=== PATIENT | male | born 1980 | race Caucasian/White ===

== ENCOUNTER 2016-12-07 18:15 | Emergency (ER) | payer OTHER ==
--- NOTE | 2016-12-07 19:14 | ED CLINICAL REPORT ---
Clinical Report - Physicians/Mid Levels [facility] [address] [place] [address] 12/07/2016 18:17 Patient: AMBAR BELLO Time Seen: 19:03 Dec 07 2016. Arrived- By private vehicle. Historian- patient. HISTORY OF PRESENT ILLNESS Chief Complaint: SKIN RASH and TENDER AREA and INSECT BITE. This started 2 - 3 days and is still present. It is described as painful. It has been located on the left leg. A possible cause has been identified. (Pain swelling to the left hip of the last 2-3 days. No drainage. No trauma to the area. Last used to the area of IV drugs was about 10 days previously. History of similar infections.). REVIEW OF SYSTEMS No fever, chills, lump in throat, eye irritation or nausea. All systems otherwise negative, except as recorded above. PAST HISTORY Tetanus immunization status is up-to-date. Problems: Skin Rash. Immunizations. Medications: Methadone HCl Oral 85 mg , daily. Allergies: None. SOCIAL HISTORY Current every day smoker. History of IV drug use: heroin, methamphetamines. ADDITIONAL NOTES The nursing notes have been reviewed. PHYSICAL EXAM Vital Signs: 12/07/2016 18:35 BP: 120/65. HR: 81. RR: 16. O2 saturation: 98%. Temp: 99.3 F. Pain level now: 5/10. Appearance: Alert. ENT: Ears normal. Nose normal. CVS: Normal heart rate and rhythm. Heart sounds normal. Respiratory: No respiratory distress. Breath sounds normal. Skin: Skin warm. Tender indurated area (5 by 5 cm swelling/ indurations, no fluctulance). Cellulitis. Abscess. Skin rash present. Rash present on the left lower extremity (left lateral thigh). There is warmth, induration, tenderness, thickening and swelling. No weeping or inflammation. Extremities: (full rom at hip, no lymphadneopathy). Neuro: Oriented X 3. PROGRESS AND PROCEDURES Course of Care: Discussed early signs of abscess which is deep, and need for antibiotics, possible I&D. Patient does not wish to have I&D at this time, as he may have to have further I&D and such of the area, as it appears primarily a cellulitis with early early signs of abscess. Patient wishes to use warm packs and return in 2-3 days if things are worse. He has had such previously. History of IV drug use. Reports his immunizations are up-to-date. afebrile/ normacardic. 12/07/2016 18:35 BP: 120/65. HR: 81. RR: 16. O2 saturation: 98%. Temp: 99.3 F. Pain level now: 10. Patient is stable. Patient/family counseled. Disposition: Discharged. CLINICAL IMPRESSION Single deep abscess to the left lower extremity. INSTRUCTIONS (warm packs antibiotics repeat eval in 2-3 days). Prescription Medications: Bactrim DS 800 mg / 160 mg: take 1 tablet orally every 12 hours for 10 days. Substitution is permissible. Keflex 500 mg: take 1 capsule orally every 8 hours for 10 days. No refill. Substitution is permissible. Follow-up: Follow up with doctor in two days. (Electronically signed by Moon Santillan P.A.-C 12/07/2016 19:22)
--- NOTE | 2016-12-07 19:14 | ED NURSING NOTES ---
Clinical Report - Nurses [facility] [address] [place] [address] 12/07/2016 18:17 Patient: AMBAR BELLO TRIAGE Triage time 18:35 Dec 07 2016. Acuity: LEVEL 3. Chief Complaint: LEFT LOWER EXTREMITY PAIN and SWELLING. Alert. No acute distress. LORENA COMA SCORE: Lorena Coma Scale: 15- eyes open spontaneously (4); best verbal response- oriented x 4 (5); best motor response- obeys commands (6). --18:42 Daly Jung R.N. 18:35 12/07/16. BP: 120/65. HR: 81. RR: 16. O2 saturation: 98%. Temp: 99.3 F. Pain level now: 11/07. --18:42 Daly Jung R.N. Weight: 83 kg stated. Height/Length: 69 inches Per Patient. BMI: 27. --18:40 Daly Jung R.N. Medications Methadone HCl Oral 85 mg , daily. --18:38 Daly Jung R.N. Allergies None. --18:38 Daly Jung R.N. History Arrived by private vehicle. Historian: patient. No injury occurred. This occurred (about 2 days ago). ( abscess to Left Hip area. Pt states that he thinks it is from a sliver a few days ago.). He has had trouble walking. 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 PAST MEDICAL HX: Tetanus status: up-to-date. Immunizations: up-to-date. SOCIAL HX: Current every day heavy tobacco smoker (cigarette)- less than 1 pack per day. History of drug use: heroin, methamphetamines. Recently used drugs days ago. No alcohol use. No infectious disease exposure. SELF HARM ASSESSMENT: A self harm assessment was performed. The patient answered "no" to the question "Do you have thoughts of harming or killing yourself?". FALL RISK ASSESSMENT: Fall risk assessment completed. No fall risk identified. NUTRITIONAL RISK ASSESSMENT: The nutritional risk assessment revealed no deficiencies. FUNCTIONAL ASSESSMENT: Functional assessment: no impairments noted. LEARNING NEEDS ASSESSMENT: The learning needs assessment revealed no barriers. ABUSE ASSESSMENT: Abuse assessment: The patient was asked "Do you feel safe in your home?". SKIN INTEGRITY ASSESSMENT: Skin integrity risk assessment completed. No skin integrity risk identified. --18:42 Daly Jung R.N. PROBLEMS: Abscess. Skin Rash. Immunizations. --18:39 Daly Jung R.N. ADDITIONAL SURGERIES: Incision AND drainage. --18:39 Daly Jung R.N. Interventions ID band on patient. To room. --18:42 Daly Jung R.N. PHYSICAL ASSESSMENT Ambulatory to room. GENERAL / NEURO / PSYCH: Oriented X 4. Alert. Appears in no acute distress. Appears in pain. EXTREMITIES: Limited ROM present. Lower extremity edema. Extremity pulses are within normal limits. Left hip: tenderness and swelling. SKIN: Skin is warm and dry. --18:43 Daly Jung R.N. NURSING PROGRESS NOTES Patient gowned. Patient identifiers checked. Call light placed in reach. Side rails up x 1. Bed placed in lowest position. --18:44 Daly Jung R.N. 19:30. The patient is calm and resting quietly. GENERAL / NEURO / PSYCH: Alert. Oriented X 4. RESPIRATORY: No respiratory distress. SKIN: Skin is warm and dry. --19:36 Leandro Knight R.N. 19:27 12/07/2016 Bactrim DS (Sulfamethoxazole-TMP DS) PO 2 tab given. Allergies verified and confirmed 5 rights. --19:37 Leandro Knight R.N. 19:27 12/07/2016 Keflex (Cephalexin) PO 500 mg given. Allergies verified and confirmed 5 rights. --19:37 Leandro Knight R.N. DISPOSITION / DISCHARGE Departure time: 19:32. Condition at departure: stable. No learning barriers present. Discharge instructions provided and reviewed with the patient. Reviewed medication(s) side effects, precautions, dosing and course information. Prescription(s) given to the patient. Patient verbalized understanding. Written instructions provided in Belgian. The patient was discharged home and accompanied by audiometrist. He left the Emergency Department ambulatory and via private vehicle. [employer] Consultant driving. FALL RISK ASSESSMENT: Fall risk assessment completed. No fall risk identified. --19:35 Leandro Knight R.N. 19:26 12/07/16. BP: 120/65. HR: 60. RR: 15. O2 saturation: 98%. Pain level now: 0/10. --19:35 Leandro Knight R.N. Locked/Released at 12/07/2016 19:59 by Daly Jung R.N.
--- NOTE | 2016-12-07 19:14 | ED NURSING NOTES ---
Clinical Report - Nurses [facility] [address] [place] [address] 12/07/2016 18:17 Patient: AMBAR BELLO TRIAGE Triage time 18:35 Dec 07 2016. Acuity: LEVEL 3. Chief Complaint: LEFT LOWER EXTREMITY PAIN and SWELLING. Alert. No acute distress. LORENA COMA SCORE: Lorena Coma Scale: 15- eyes open spontaneously (4); best verbal response- oriented x 4 (5); best motor response- obeys commands (6). --18:42 Daly Jung R.N. 18:35 12/07/16. BP: 120/65. HR: 81. RR: 16. O2 saturation: 98%. Temp: 99.3 F. Pain level now: 11/07. --18:42 Daly Jung R.N. Weight: 83 kg stated. Height/Length: 69 inches Per Patient. BMI: 27. --18:40 Daly Jung R.N. Medications Methadone HCl Oral 85 mg , daily. --18:38 Daly Jung R.N. Allergies None. --18:38 Daly Jung R.N. History Arrived by private vehicle. Historian: patient. No injury occurred. This occurred (about 2 days ago). ( abscess to Left Hip area. Pt states that he thinks it is from a sliver a few days ago.). He has had trouble walking. 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 PAST MEDICAL HX: Tetanus status: up-to-date. Immunizations: up-to-date. SOCIAL HX: Current every day heavy tobacco smoker (cigarette)- less than 1 pack per day. History of drug use: heroin, methamphetamines. Recently used drugs days ago. No alcohol use. No infectious disease exposure. SELF HARM ASSESSMENT: A self harm assessment was performed. The patient answered "no" to the question "Do you have thoughts of harming or killing yourself?". FALL RISK ASSESSMENT: Fall risk assessment completed. No fall risk identified. NUTRITIONAL RISK ASSESSMENT: The nutritional risk assessment revealed no deficiencies. FUNCTIONAL ASSESSMENT: Functional assessment: no impairments noted. LEARNING NEEDS ASSESSMENT: The learning needs assessment revealed no barriers. ABUSE ASSESSMENT: Abuse assessment: The patient was asked "Do you feel safe in your home?". SKIN INTEGRITY ASSESSMENT: Skin integrity risk assessment completed. No skin integrity risk identified. --18:42 Daly Jung R.N. PROBLEMS: Abscess. Skin Rash. Immunizations. --18:39 Daly Jung R.N. ADDITIONAL SURGERIES: Incision AND drainage. --18:39 Daly Jung R.N. Interventions ID band on patient. To room. --18:42 Daly Jung R.N. PHYSICAL ASSESSMENT Ambulatory to room. GENERAL / NEURO / PSYCH: Oriented X 4. Alert. Appears in no acute distress. Appears in pain. EXTREMITIES: Limited ROM present. Lower extremity edema. Extremity pulses are within normal limits. Left hip: tenderness and swelling. SKIN: Skin is warm and dry. --18:43 Daly Jung R.N. NURSING PROGRESS NOTES Patient gowned. Patient identifiers checked. Call light placed in reach. Side rails up x 1. Bed placed in lowest position. --18:44 Daly Jung R.N. 19:30. The patient is calm and resting quietly. GENERAL / NEURO / PSYCH: Alert. Oriented X 4. RESPIRATORY: No respiratory distress. SKIN: Skin is warm and dry. --19:36 Leandro Knight R.N. 19:27 12/07/2016 Bactrim DS (Sulfamethoxazole-TMP DS) PO 2 tab given. Allergies verified and confirmed 5 rights. --19:37 Leandro Knight R.N. 19:27 12/07/2016 Keflex (Cephalexin) PO 500 mg given. Allergies verified and confirmed 5 rights. --19:37 Leandro Knight R.N. DISPOSITION / DISCHARGE Departure time: 19:32. Condition at departure: stable. No learning barriers present. Discharge instructions provided and reviewed with the patient. Reviewed medication(s) side effects, precautions, dosing and course information. Prescription(s) given to the patient. Patient verbalized understanding. Written instructions provided in Namibian. The patient was discharged home and accompanied by calibration technician. He left the Emergency Department ambulatory and via private vehicle. Bad Cloth Checker driving. FALL RISK ASSESSMENT: Fall risk assessment completed. No fall risk identified. --19:35 Leandro Knight R.N. 19:26 12/07/16. BP: 120/65. HR: 60. RR: 15. O2 saturation: 98%. Pain level now: 0/10. --19:35 Leandro Knight R.N. Locked/Released at 12/07/2016 19:59 by Daly Jung R.N.
--- NOTE | 2016-12-07 19:15 | ED ORDER SUMMARY ---
..... Patient: AMBAR BELLO OrderSheet [facility] VisitID: [id number] [address] [place] [address] 36y, M Registration Date/Time: 12/07/2016 ORDER SHEET Weight: 83.0 kg (stated) Allergies: None GENERAL ORDERS: US Soft Tissue Anywhere (LEFT THIGH) Urgent (18:56 12/07/2016 EKoroleva P.A.-C) (Ack 18:57 Alyssia) (19:36 JQuivey R.N.) CBC w Diff Urgent (19:02 12/07/2016 EKoroleva P.A.-C) (Ack 19:03 Alyssia) (Cancelled: Other19:12 EKoroleva P.A.-C) PCT (Procalcitonin) Urgent (19:02 12/07/2016 EKoroleva P.A.-C) (Ack 19:03 Alyssia) (Cancelled: Other19:12 EKoroleva P.A.-C) MEDICATION ORDERS: Bactrim DS PO (Tablet 800-160 mg) 2 tabs (NOW) (19:12 12/07/2016 EKoroleva P.A.-C) (Ack 19:28 JQuivey R.N.) (19:37 JQuivey R.N.) Keflex PO 500 mg (NOW) (19:12 12/07/2016 EKoroleva P.A.-C) (Ack 19:28 JQuivey R.N.) (19:37 JQuivey R.N.) IV FLUIDS: ORDER SHEET NOTES: [Electronically signed by Moon SantillanABishop-Christy (19:22 12/07/2016)] [Electronically signed by Daly Jung R.N. (19:58 12/07/2016)] [Electronically locked/signed by Daly Jung R.N. (19:58 12/07/2016)]
--- NOTE | 2016-12-07 19:15 | ED ORDER SUMMARY ---
..... Patient: AMBAR BELLO OrderSheet [facility] VisitID: [id number] [address] [place] [address] 36y, M Registration Date/Time: 12/07/2016 ORDER SHEET Weight: 83.0 kg (stated) Allergies: None GENERAL ORDERS: US Soft Tissue Anywhere (LEFT THIGH) Urgent (18:56 12/07/2016 EKoroleva P.A.-C) (Ack 18:57 Alyssia) (19:36 JQuivey R.N.) CBC w Diff Urgent (19:02 12/07/2016 EKoroleva P.A.-C) (Ack 19:03 Alyssia) (Cancelled: Other19:12 EKoroleva P.A.-C) PCT (Procalcitonin) Urgent (19:02 12/07/2016 EKoroleva P.A.-C) (Ack 19:03 Alyssia) (Cancelled: Other19:12 EKoroleva P.A.-C) MEDICATION ORDERS: Bactrim DS PO (Tablet 800-160 mg) 2 tabs (NOW) (19:12 12/07/2016 EKoroleva P.A.-C) (Ack 19:28 JQuivey R.N.) (19:37 JQuivey R.N.) Keflex PO 500 mg (NOW) (19:12 12/07/2016 EKoroleva P.A.-C) (Ack 19:28 JQuivey R.N.) (19:37 JQuivey R.N.) IV FLUIDS: ORDER SHEET NOTES: [Electronically signed by Moon SantillanABishop-Christy (19:22 12/07/2016)] [Electronically signed by Daly Jung R.N. (19:58 12/07/2016)] [Electronically locked/signed by Daly Jung R.N. (19:58 12/07/2016)]
--- NOTE | 2016-12-07 19:44 | DIAGNOSTIC IMAGING REPORT ---
PROCEDURE: US SOFT TISSUE ANYWHERE INDICATION: ABSCESS TECHNIQUE: Valencia scale and color Doppler sonographic images of the upper lateral left thigh were obtained COMPARISON: None. FINDINGS: There is a complex hypoechoic area in the left upper thigh that measures 5.9 x 1.5 x3.7 cm. This is 1.5 cm beneath the skin surface. IMPRESSION: 1. Abscess measuring 5.9 x 1.5 x 3.7 cm
--- NOTE | 2016-12-07 19:59 | ED MAR SUMMARY ---
..... Medication Administration Record [facility] [address] [place] [address] Patient: AMBAR BELLO Visit ID: [id number] 36y, M Weight: 83.0 kg Height/Length: 69 in BMI: 27 ALLERGIES: None Given 12/07/2016 Leandro Knight, R.N. Medication Administered: BACTRIM DS [PO] (SULFAMETHOXAZOLE-TMP DS), Dose: 2 tab PO. Medication Ordered: Bactrim DS PO (Tablet 800-160 mg) 2 tabs (NOW). Given 12/07/2016 Leandro Knight, R.N. Medication Administered: KEFLEX [PO] (CEPHALEXIN), Dose: 500 mg PO. Medication Ordered: Keflex PO 500 mg (NOW).
--- NOTE | 2016-12-07 19:59 | ED MED RECONCILIATION SUMMARY ---
Patient: AMBAR BELLO Medication Reconciliation Report [facility] VisitID: [id number] [address] [place] [address] 36y, M Registration Date/Time: 12/07/2016 Weight: 83.0 kg Height/Length: 69 in. BMI: 27.0 ALLERGIES: None The patient's Home Medications are listed below: THE FOLLOWING MEDICATIONS NEED TO BE RECONCILED: Methadone HCl Oral 85 mg , daily The source(s) of the original Home Medication information: Not obtained. The following Medications were given to the patient in the Emergency Department: Bactrim DS [PO] PO 2 tab, administered: 12/07/2016 7:27:00 PM Keflex [PO] PO 500 mg, administered: 12/07/2016 7:27:00 PM The following Medications were prescribed to the patient: Bactrim DS 800 mg / 160 mg: take 1 tablet orally every 12 hours for 10 days. Substitution is permissible. -- Moon Santillan P.A.-Christy Keflex 500 mg: take 1 capsule orally every 8 hours for 10 days. No refill. Substitution is permissible. -- Moon Santillan, P.A.-C
--- NOTE | 2016-12-07 19:59 | ED MAR SUMMARY ---
..... Medication Administration Record [facility] [address] [place] [address] Patient: AMBAR BELLO Visit ID: [id number] 36y, M Weight: 83.0 kg Height/Length: 69 in BMI: 27 ALLERGIES: None Given 12/07/2016 Leandro Knight, R.N. Medication Administered: BACTRIM DS [PO] (SULFAMETHOXAZOLE-TMP DS), Dose: 2 tab PO. Medication Ordered: Bactrim DS PO (Tablet 800-160 mg) 2 tabs (NOW). Given 12/07/2016 Leandro Knight, R.N. Medication Administered: KEFLEX [PO] (CEPHALEXIN), Dose: 500 mg PO. Medication Ordered: Keflex PO 500 mg (NOW).
--- NOTE | 2016-12-07 19:59 | ED DISCHARGE INSTRUCTIONS ---
Patient: AMBAR BELLO General Instructions [facility] VisitID: [id number] [place] [address] 36y, M Registration Date/Time: 12/07/2016 Single deep abscess to the left lower extremity. INSTRUCTIONS (warm packs antibiotics repeat eval in 2-3 days). Prescription Medications: Bactrim DS 800 mg / 160 mg: take 1 tablet orally every 12 hours for 10 days. Substitution is permissible. Keflex 500 mg: take 1 capsule orally every 8 hours for 10 days. No refill. Substitution is permissible. Follow-up: Follow up with doctor in two days. ADDITIONAL INFORMATION Abscess (Antibiotic Treatment Only) An abscess (sometimes called a boil) occurs when bacteria get trapped under the skin and begin to grow. Pus forms inside the abscess as the body responds to the bacteria. An abscess can occur with an insect bite, ingrown hair, blocked oil gland, pimple, cyst, or puncture wound. In the early stages, redness and tenderness are the only symptoms. Sometimes, this stage can be treated with antibiotics alone. If the abscess does not respond to antibiotic treatment, it will need to be drained with a small cut, under local anesthesia. Home care The following will help you care for your abscess at home: Soak the wound in hot water or apply hot packs (small towel soaked in hot water) to the area for 20 minutes at a time. Do this three to four times a day. Apply antibiotic cream or ointment onto the skin 3-4 times a day, unless something else was prescribed. Some ointments include an antibiotic plus a local pain reliever. If your doctor prescribed antibiotics, do not stop taking this medication until you have finished the prescribed course or the doctor tells you to stop. You may use an [id number] pain medication to control pain, unless another pain medicine was prescribed. If you have chronic liver or kidney disease or ever had a stomach ulcer or GI bleeding, talk with your doctor before using these any of these. Follow-up care Follow up with your health care provider as advised by our staff. Look at your wound each day for the signs of worsening infection listed below. When to seek medical care Get prompt medical attention if any of the following occur: An increase in redness or swelling Red streaks in the skin leading away from the abscess An increase in local pain or swelling Fever of 100.4F (38C) or higher, or as directed by your health care provider Pus or fluid coming from the abscess Cellulitis You have an infection of the skin known as cellulitis. This usually starts with a scrape, cut, insect bite, blister or other opening in the skin which becomes infected. This is a serious condition. It must be watched closely to be sure the infection is not spreading. With antibiotic treatment, the size of the red area will gradually shrink in size until the skin returns to normal. This will take 7-10 days. The red area should never increase in size once the antibiotic medicine has been started. Occasionally, an infection will be resistant to one antibiotic and another one will have to be used. Home Care: 1) Limit the use of the affected part, since excess movement can cause the infection to spread. 2) If the infection is on your leg, walk as little as possible during the first few days of the treatment. Keep your leg elevated while sitting. This will reduce swelling. 3) Take all of the antibiotic medicine exactly as directed until it is gone. Be careful not to miss any doses, especially during the first seven days. Follow Up with your doctor or this facility as directed. Check the infected area daily for the warning signs listed below. Get Prompt Medical Attention if any of the following occur: -- Spreading area of redness -- Increasing swelling or pain -- Appearance of pus or drainage -- Fever over 100.4 F (38.0 C) oral, or over 101.4 F (38.6 C) rectal, after two days on antibiotics Staph Infection (MRSA) "Staph" is the short name for the common bacteria called "staphylococcus aureus". Staph bacteria are often present on the skin without causing an infection. If it gets under the skin an infection occurs. This causes redness, tenderness, swelling and sometimes fluid drainage. MRSA stands for "Methicillin-Resistant Staph Aureus". Unlike a common staph infection, MRSA bacteria are resistant to the usual antibiotics and harder to treat. Also, MRSA is more toxic than common staph bacteria. It can spread quickly throughout the body and cause a life-threatening illness. MRSA is spread to others by direct physical contact with the bacteria. MRSA can also be transmitted from items contaminated by a person who has the bacteria, such as bandages, towels, bed sheets, or sports equipment. It is not spread through the air. Once you have a MRSA skin infection, you are at risk of having it recur in the future. If MRSA infection is suspected, the doctor may take a wound culture to confirm the diagnosis. Any abscess will be drained. One or sometimes two antibiotics that work against MRSA will be prescribed. Home Care: 1) Take any antibiotics prescribed exactly as directed until they are gone. 2) Follow the same washing procedures as outlined for Household Members below. 3) Keep draining wounds covered with clean, dry bandages. Change dressings as they become soiled. 4) You and those in contact with you should wash their hands frequently with soap and warm water or use an alcohol-based hand look out tower fire watcher. Do this after each time you change the bandage or touch the wound. 5) Avoid sharing personal items such as towels, washcloths, razors, clothing, or uniforms. Wash soiled sheets, towels or clothes in hot water with laundry detergent. Use an automatic clothes dryer set on high to kill any remaining bacteria. 6) Remove any artificial nails and nail haitian. 7) If you use a gym, wipe down equipment before and after each use. Treatment Of Household Members If you have been diagnosed with possible MRSA infection, those living with you are at higher risk of carrying the bacteria on their skin or in their nose, even if there is no sign of infection. Bacteria must be removed from the skin of all household members (including you) at the same time, so that it is not passed back and forth. Advise them to remove the bacteria as follows: Wash your whole body (scalp to toes) daily for five days with Hibiclens (chlorhexidine). Scrub fingernails with a brush for one minute twice a day. If any skin infections are present (boils, abscess, infected cut) these must be treated by a doctor. Washing alone will not treat a MRSA infection. Clean counter tops and children's toys; do not share personal items such as toothbrush and razors. It is okay to share glasses, plates, utensils. If antibiotic ointment was prescribed use it as directed. Follow Up with your doctor or as advised by our staff. If a wound culture was taken, call as directed in two days to obtain the results. If the culture result is positive for MRSA, tell medical personnel in the future that you were treated for this type of infection. Get Prompt Medical Attention if any of the following occur: -- Increasing redness, swelling or pain -- Red streaks in the skin around the wound -- Weakness or dizziness -- New appearance of pus or drainage from the wound -- New fever over 100.4 F (38.0 C) Sulfamethoxazole, Trimethoprim Oral tablet What is this medicine? SULFAMETHOXAZOLE; TRIMETHOPRIM or SMX-TMP (suhl fuh meth OK tang zohl; trye METH oh prim) is a combination of a sulfonamide antibiotic and a second antibiotic, trimethoprim. It is used to treat or prevent certain kinds of bacterial infections. It will not work for colds, flu, or other viral infections. How should I use this medicine? Take this medicine by mouth with a full glass of water. Follow the directions on the prescription label. Take your medicine at regular intervals. Do not take it more often than directed. Do not skip doses or stop your medicine early. Talk to your explosive ordnance technician regarding the use of this medicine in children. Special care may be needed. This medicine has been used in children as young as 2 months of age. What side effects may I notice from receiving this medicine? Side effects that you should report to your doctor or health palliative care coordinator as soon as possible: allergic reactions like skin rash or hives, swelling of the face, lips, or tongue breathing problems fever or chills, sore throat irregular heartbeat, chest pain joint or muscle pain pain or difficulty passing urine red pinpoint spots on skin redness, blistering, peeling or loosening of the skin, including inside the mouth unusual bleeding or bruising unusually weak or tired yellowing of the eyes or skin Side effects that usually do not require medical attention (report to your doctor or health palliative care coordinator if they continue or are bothersome): diarrhea dizziness headache loss of appetite nausea, vomiting nervousness What may interact with this medicine? Do not take this medicine with any of the following medications: aminobenzoate potassium dofetilide metronidazole This medicine may also interact with the following medications: BLANKA inhibitors like benazepril, enalapril, lisinopril, and ramipril cyclosporine digoxin diuretics indomethacin medicines for diabetes methenamine methotrexate phenytoin potassium supplements pyrimethamine sulfinpyrazone tricyclic antidepressants warfarin What if I miss a dose? If you miss a dose, take it as soon as you can. If it is almost time for your next dose, take only that dose. Do not take double or extra doses. Where should I keep my medicine? Keep out of the reach of children. Store at room temperature between 20 to 25 degrees C (68 to 77 degrees F). Protect from light. Throw away any unused medicine after the expiration date. What should I tell my health care provider before I take this medicine? They need to know if you have any of these conditions: anemia asthma being treated with anticonvulsants if you frequently drink alcohol containing drinks kidney disease liver disease low level of folic acid or [id number] dehydrogenase poor nutrition or malabsorption porphyria severe allergies thyroid disorder an unusual or allergic reaction to sulfamethoxazole, trimethoprim, sulfa drugs, other medicines, foods, dyes, or preservatives or trying to get breast-feeding What should I watch for while using this medicine? Tell your doctor or health palliative care coordinator if your symptoms do not improve. Drink several glasses of water a day to reduce the risk of kidney problems. Do not treat diarrhea with over the counter products. Contact your doctor if you have diarrhea that lasts more than 2 days or if it is severe and watery. This medicine can make you more sensitive to the sun. Keep out of the sun. If you cannot avoid being in the sun, wear protective clothing and use a sunscreen. Do not use sun lamps or tanning beds/booths. Cephalexin Monohydrate Oral tablet What is this medicine? CEPHALEXIN (sef a VALE in) is a cephalosporin antibiotic. It is used to treat certain kinds of bacterial infections It will not work for colds, flu, or other viral infections. How should I use this medicine? Take this medicine by mouth with a full glass of water. Follow the directions on the prescription label. This medicine can be taken with or without food. Take your medicine at regular intervals. Do not take your medicine more often than directed. Take all of your medicine as directed even if you think you are better. Do not skip doses or stop your medicine early. Talk to your explosive ordnance technician regarding the use of this medicine in children. While this drug may be prescribed for selected conditions, precautions do apply. What side effects may I notice from receiving this medicine? Side effects that you should report to your doctor or health palliative care coordinator as soon as possible: allergic reactions like skin rash, itching or hives, swelling of the face, lips, or tongue breathing problems pain or trouble passing urine redness, blistering, peeling or loosening of the skin, including inside the mouth severe or watery diarrhea unusually weak or tired yellowing of the eyes, skin Side effects that usually do not require medical attention (report to your doctor or health palliative care coordinator if they continue or are bothersome): gas or heartburn genital or anal irritation headache joint or muscle pain nausea, vomiting What may interact with this medicine? probenecid some other antibiotics What if I miss a dose? If you miss a dose, take it as soon as you can. If it is almost time for your next dose, take only that dose. Do not take double or extra doses. There should be at least 4 to 6 hours between doses. Where should I keep my medicine? Keep out of the reach of children. Store at room temperature between 59 and 86 degrees F (15 and 30 degrees C). Throw away any unused medicine after the expiration date. What should I tell my health care provider before I take this medicine? They need to know if you have any of these conditions: kidney disease stomach or intestine problems, especially colitis an unusual or allergic reaction to cephalexin, other cephalosporins, penicillins, other antibiotics, medicines, foods, dyes or preservatives or trying to get breast-feeding What should I watch for while using this medicine? Tell your doctor or health palliative care coordinator if your symptoms do not begin to improve in a few days. Do not treat diarrhea with over the counter products. Contact your doctor if you have diarrhea that lasts more than 2 days or if it is severe and watery. If you have diabetes, you may get a false-positive result for sugar in your urine. Check with your doctor or health palliative care coordinator. You have been given the following additional information: Abscess, Antiobiotic Treatment Only Cellulitis MRSA Skin Infection, Suspected Or Confirmed Sulfamethoxazole, Trimethoprim Oral tablet Cephalexin Monohydrate Oral tablet (Electronically signed by Moon Santlilan P.A.-C 12/07/2016 19:22)
--- NOTE | 2016-12-07 19:59 | ED MED RECONCILIATION SUMMARY ---
Patient: AMBAR BELLO Medication Reconciliation Report [facility] VisitID: [id number] [address] [place] [address] 36y, M Registration Date/Time: 12/07/2016 Weight: 83.0 kg Height/Length: 69 in. BMI: 27.0 ALLERGIES: None The patient's Home Medications are listed below: THE FOLLOWING MEDICATIONS NEED TO BE RECONCILED: Methadone HCl Oral 85 mg , daily The source(s) of the original Home Medication information: Not obtained. The following Medications were given to the patient in the Emergency Department: Bactrim DS [PO] PO 2 tab, administered: 12/07/2016 7:27:00 PM Keflex [PO] PO 500 mg, administered: 12/07/2016 7:27:00 PM The following Medications were prescribed to the patient: Bactrim DS 800 mg / 160 mg: take 1 tablet orally every 12 hours for 10 days. Substitution is permissible. -- Moon Santillan P.A.-Christy Keflex 500 mg: take 1 capsule orally every 8 hours for 10 days. No refill. Substitution is permissible. -- Moon Santillan, P.A.-C
== END 2016-12-07 19:32 | disposition home or self-care (01) ==
LOC: ED SRH 18:15
DX: J18.9 Pneumonia, unspecified organism (principal)

== ENCOUNTER 2016-12-12 17:57 | Inpatient (IN) | payer OTHER ==
[~2016-12-12] VITALS: Ht 175.3 cm; Wt 80.2 kg
--- NOTE | 2016-12-12 20:33 | DIAGNOSTIC IMAGING REPORT ---
PROCEDURE: US SOFT TISSUE ANYWHERE INDICATION: Follow-up left hip/thigh abscess. TECHNIQUE: Valencia scale and color Doppler sonographic images of the left proximal hip/thigh were obtained COMPARISON: Comparison is made to ultrasound of the soft tissues on 12/07/2016. FINDINGS: There is a persistent 6.4 x 2.2 cm ovoid hypoechoic area in the subcutaneous tissues of the left anterior lateral thigh. IMPRESSION: 1. There is a persistent 6.4 x 2.2 cm hypoechoic area in the subcutaneous tissues consistent with phlegmon or abscess. 2. Findings discussed with SHREYAS Stahl.
--- NOTE | 2016-12-12 21:01 | ED NURSING NOTES ---
Clinical Report - Nurses [facility] [address] [place] [address] 12/12/2016 17:57 [id number] Triage time 18:07. Acuity: LEVEL 4. Chief Complaint: RECHECK OF WOUND. 18:07 12/12/16. 18:07 12/12/16. Alert. No acute distress. SEPSIS SCREEN: Sepsis Screen. Negative (no infection suspected/documented). MATTHEW COMA SCORE: [place] Coma Scale: 15- eyes open spontaneously (4); best verbal response- oriented x 4 (5); best motor response- obeys commands (6). --18:12 Seun Aldana R.N. 18:09 12/12/16. BP: 118/70. HR: 74. RR: 18. O2 saturation: 100% on room air. Temp: 98.2 F (oral). Pain level now: 02/07. --18:12 Seun Aldana R.N. Weight: 83.9 kg stated. Height/Length: 69 inches Per Patient. BMI: 27.3. --18:08 Seun Aldana R.N. Medications Methadone HCl Oral 85 mg , daily. --18:09 Seun Aldana R.N. Medication/allergy information source: the patient. --18:12 Seun Aldana R.N. Allergies None. --18:09 Seun Aldana R.N. History Arrived by private vehicle. Primary physician (NONE). 18:07 12/12/16. Previous treatment: Previously seen in ED four days ago. Antibiotic given in ED. PAST MEDICAL HX: Tetanus status: up-to-date. Immunizations: up-to-date. SOCIAL HX: Current every day heavy tobacco smoker- 1 pack per day. History of drug use. 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 No alcohol use. No infectious disease exposure. ABUSE ASSESSMENT: No report of abuse. FALL RISK ASSESSMENT: Fall risk assessment completed. No fall risk identified. NUTRITIONAL RISK ASSESSMENT: The nutritional risk assessment revealed no deficiencies. FUNCTIONAL ASSESSMENT: Functional assessment: no impairments noted. LEARNING NEEDS ASSESSMENT: The learning needs assessment revealed no barriers. SKIN INTEGRITY ASSESSMENT: Skin integrity risk assessment completed. No skin integrity risk identified. --18:12 Seun Aldana R.N. PROBLEMS: Abscess. Skin Rash. Immunizations. --18:09 Seun Aldana R.N. ADDITIONAL SURGERIES: Incision AND drainage. --18:09 Senu Aldana R.N. Assessment 18:12/12/16. --18:12 Seun Aldana R.N. Interventions 18:12/12/16. 18:12/12/16. ID and allergy band on patient. To treatment room. --18:12 Seun Aldana R.N. PHYSICAL ASSESSMENT 18:12/12/16. Ambulatory to room. GENERAL / NEURO / PSYCH: Alert. Oriented X 4. EXTREMITIES: Capillary refill is less than 2 seconds in the extremities. SKIN: Warmth (Left hip). Tenderness (Left hip). Erythema (Left hip). --18:10 Seun Aldana R.N. NURSING PROGRESS NOTES 18:12/12/16. Two patient identifiers checked. Call light placed in reach. Side rails up x 2. Bed placed in lowest position. Brakes of bed on. --18:10 Seun Aldana R.N. Care transferred and report received (RICH Kohli). --19:15 Racheal Cohen R.N. Care transferred and report received (TO RICH Springer). --19:15 Racheal Cohen R.N. 19:20 12/12/16. Care transferred and report given. --19:20 Seun Aldana R.N. 19:33 12/12/16. BP: 111/62 (regular adult cuff) taken on the left arm, via an automated monitor, while lying. HR: 65. RR: 12 (regular and unlabored). O2 saturation: 97% on room air. Temp: 98.3 F (oral). Pain level now: 10. --19:34 Racheal Cohen R.N. Reassurance given. The patient is calm. CVS: Extremity pulses are within normal limits. EXTREMITIES: Neuro-vascular status intact to the extremity. Patient identifiers checked. Call light placed in reach. --19:34 Racheal Cohen R.N. ( Attempted to obtain lab from pt multiple times, extremely difficult stick, lab tried 4 times, RN tried x1, and tech attempted x2 unable to acquired any. PA aware.). --20:27 Racheal Cohen R.N. 21:24 12/12/2016 Site #1 started via IV in the left upper arm with an 22g angiocath, with aseptic technique and good blood return; three attempts. Saline lock flushed with 10 mL saline. --21:34 Amanda Nascimento R.N. 21:35 12/12/2016 Dilaudid (HYDROmorphone HCl PF) IVP 1 mg given over 2 minute(s) via site #1. Allergies verified, confirmed 5 rights and sedative warning given to the patient. IV patency established. IV site checked: no pain, redness, or swelling. IV flushed thoroughly pre- and post-medication administration. IVP given by RN. --21:35 Amanda Nascimento R.N. 22:12/12/2016 Started 2 gm of Vancomycin IVPB in bag #1 500 mL; at 500 mL/hr over 2 hour(s) via site #1 via IV pump. Allergies verified and confirmed 5 rights. IV patency established. IV site checked: no pain, redness, or swelling. IV flushed thoroughly pre- and post-medication administration. Completed per protocol. --22:07 Racheal Cohen R.N. 22:12/12/2016 Dilaudid (HYDROmorphone HCl PF) IVP 1 mg given over 30 second(s) via site #1. Allergies verified, confirmed 5 rights and sedative warning given to the patient. IV patency established. IV site checked: no pain, redness, or swelling. IV flushed thoroughly pre- and post-medication administration. IVP given by RN. --22:07 Racheal Cohen R.N. The patient is calm. ( Left hip site redness noted, as per pt painful, able to finally get an IV on left upper arm after multiple tries. Vanco being administered as ordered. Dilaudid given as ordered). SKIN: Swelling. Erythema. --22:09 Racheal Cohen R.N. 21:52 12/12/16. BP: 99/53. HR: 69. RR: 16. O2 saturation: 99%. Temp: 98.6 F. Pain level now: 01/07. --22:09 Racheal Cohen R.N. Care transferred and report given (RICH Dangelo). --22:19 Racheal Cohen R.N. Care transferred and report received. --22:23 Loreto Hernandez R.N. DISPOSITION / DISCHARGE 22:27 12/12/16. BP: 106/63. HR: 61. RR: 15. O2 saturation: 96% on room air. Temp: 98.6 F (oral). Costa-Rahman pain scale: 10. --22:27 Loreto Hernandez R.N. Admitted. Transported via stretcher by transport team with IV. --22:47 Loreto Hernandez R.N. Report was given to a nurse. Report included patient's care, treatment, medications, reviewed medication reconcilliation, and condition (including any recent changes or anticipated changes). Report was acknowledged. (by Loi Bedolla RN). --22:48 Loreto Hernandez R.N. 22:30 12/12/2016 Site #[address] upon admission; flushes easily. --22:48 Loreto Hernandez R.N. 22:35 12/12/2016 Vancomycin IVPB Continued: upon admission at the rate of 200 mL/hr. 200 mL remaining bag #1. IV patency established. IV site checked: no pain, redness, or swelling. IV flushed thoroughly. (Pt had 2 bags of Vancomycin (1gm each) hanging at time of admission.). --22:52 Loreto Hernandez R.N. Locked/Released at 12/12/2016 22:52 by Loreto Hernandez R.N.
--- NOTE | 2016-12-12 21:01 | ED ORDER SUMMARY ---
..... Patient: AMBAR BELLO OrderSheet [facility] VisitID: [id number] [place] [address] 36y, M Registration Date/Time: 12/12/2016 ORDER SHEET Weight: 83.9 kg (stated) Allergies: None GENERAL ORDERS: US Soft Tissue Anywhere (left thigh) Urgent (19:08 12/12/2016 EKoroleva P.A.-C) (Ack 19:13 PWeiler ER Tech1) (19:48 EHassan R.N.) CBC w Diff Urgent (19:23 12/12/2016 EKoroleva P.A.-C) (Ack 20:24 CHagerty ER Shuttle Threader) (20:38 EHassan R.N.) BMP Urgent (19:23 12/12/2016 EKoroleva P.A.-C) (Ack 20:24 CHagerty ER Shuttle Threader) (20:38 EHassan R.N.) PCT (Procalcitonin) Urgent (19:23 12/12/2016 EKoroleva P.A.-C) (Ack 20:24 CHagerty ER Shuttle Threader) (20:38 EHassan R.N.) MEDICATION ORDERS: IV FLUIDS: Dilaudid IV 1 mg (HIGH ALERT MEDICATION, NOW) (21:28 12/12/2016 EKoroleva P.A.-C) (21:35 CFalkner R.N.) Vancomycin IV 2 gm/500 mL (NOW) (21:28 12/12/2016 EKoroleva P.A.-C) (22:07 EHassan R.N.) Dilaudid IV 1 mg (HIGH ALERT MEDICATION, NOW) (21:56 12/12/2016 EKoroleva P.A.-C) (22:07 EHassan R.N.) ORDER SHEET NOTES: [Electronically signed by Moon Santillan PBishopA.-C (22:38 12/12/2016)] [Electronically signed by Loreto Hernandez R.N. (22:52 12/12/2016)] [Electronically locked/signed by Loreto Hernandez R.N. (22:52 12/12/2016)]
--- NOTE | 2016-12-12 21:01 | ED ORDER SUMMARY ---
..... Patient: AMBAR BELLO OrderSheet [facility] VisitID: [id number] [place] [address] 36y, M Registration Date/Time: 12/12/2016 ORDER SHEET Weight: 83.9 kg (stated) Allergies: None GENERAL ORDERS: US Soft Tissue Anywhere (left thigh) Urgent (19:08 12/12/2016 EKoroleva P.A.-C) (Ack 19:13 PWeiler ER Tech1) (19:48 EHassan R.N.) CBC w Diff Urgent (19:23 12/12/2016 EKoroleva P.A.-C) (Ack 20:24 CHagerty ER Heating Equipment Installer) (20:38 EHassan R.N.) BMP Urgent (19:23 12/12/2016 EKoroleva P.A.-C) (Ack 20:24 CHagerty ER Heating Equipment Installer) (20:38 EHassan R.N.) PCT (Procalcitonin) Urgent (19:23 12/12/2016 EKoroleva P.A.-C) (Ack 20:24 CHagerty ER Heating Equipment Installer) (20:38 EHassan R.N.) MEDICATION ORDERS: IV FLUIDS: Dilaudid IV 1 mg (HIGH ALERT MEDICATION, NOW) (21:28 12/12/2016 EKoroleva P.A.-C) (21:35 CFalkner R.N.) Vancomycin IV 2 gm/500 mL (NOW) (21:28 12/12/2016 EKoroleva P.A.-C) (22:07 EHassan R.N.) Dilaudid IV 1 mg (HIGH ALERT MEDICATION, NOW) (21:56 12/12/2016 EKoroleva P.A.-C) (22:07 EHassan R.N.) ORDER SHEET NOTES: [Electronically signed by Moon Santillan PBishopA.-C (22:38 12/12/2016)] [Electronically signed by Loreto Hernandez R.N. (22:52 12/12/2016)] [Electronically locked/signed by Loreto Hernandez R.N. (22:52 12/12/2016)]
--- NOTE | 2016-12-12 22:21 | Preoperative Progress Note ---
Preop Note Details Current Status Changes: Abscess left thigh Physical Exam: No Changes Other: CV Reviewed
--- NOTE | 2016-12-12 22:21 | Preoperative Progress Note ---
Preop Note Details Current Status Changes: Abscess left thigh Physical Exam: No Changes Other: CV Reviewed
--- NOTE | 2016-12-12 22:23 | Progress Note ---
Subjective General He has a left thigh abscess and is admitted for I/D of the same and IV antibiotics after worsening with OP PO antibiotic treatment.
--- NOTE | 2016-12-12 22:23 | Progress Note ---
Subjective General He has a left thigh abscess and is admitted for I/D of the same and IV antibiotics after worsening with OP PO antibiotic treatment.
[2016-12-12] MEDS ORDERED: BACTRIM DS1 TAB PO (22:29)
[2016-12-12] MEDS ORDERED: KEFLEX750 MG PO (22:30)
[2016-12-12] MEDS ORDERED: METHADONE HCL10 MG PO (22:31)
--- NOTE | 2016-12-12 22:52 | ED CLINICAL REPORT ---
Clinical Report - Physicians/Mid Levels [facility] [address] [place] [address] 12/12/2016 17:57 Patient: AMBAR BELLO Time Seen: 1814. Arrived- By private vehicle. Historian- patient. HISTORY OF PRESENT ILLNESS Chief Complaint: SKIN RASH and TENDER AREA. This started 7 days COMMUNITY OUTREACH SPECIALIST and is still present. It is described as painful. It has been located on the left lower extremity. (Patient with history of IV drug, recently seen in the emergency department, has been taking his antibiotics outpatient. Patient has had some chills. He denies any new injury. Denies any difficulty ambulating.). REVIEW OF SYSTEMS No fever, hoarseness, headache, eye irritation or abdominal pain. No nausea or difficulty with urination. All systems otherwise negative, except as recorded above. PAST HISTORY Tetanus immunization status is up-to-date. Problems: Abscess. Skin Rash. Immunizations. Additional Surgeries: Incision AND drainage. Medications: Methadone HCl Oral 85 mg , daily. Allergies: None. SOCIAL HISTORY Smoker- current status unknown. History of drug use. ADDITIONAL NOTES The nursing notes have been reviewed. PHYSICAL EXAM Vital Signs: 12/12/2016 18:09 BP: 118/70. HR: 74. RR: 18. O2 saturation: 100%. Temp: 98.2 F. Pain level now: 8/10. ENT: Ears normal. Nose normal. Neck: Neck supple. CVS: Normal heart rate and rhythm. Heart sounds normal. Respiratory: No respiratory distress. Breath sounds normal. Skin: Skin warm. Tender indurated area. Cellulitis. Abscess (left lateral anterior thigh). There is warmth, tenderness and swelling. Neuro: Oriented X 3. LABS, X-RAYS, AND EKG Laboratory Tests: CBC w Diff: (KATT: 12/12/2016 20:15) ( MsgRcvd 12/12/2016 20:26) Final results Test Result Flag Units (Reference) WHITE BLOOD COUNT 17.9 H K/uL (4.5-11.5) RED BLOOD COUNT 4.41 L M/uL (4.50-5.90) HEMOGLOBIN 12.9 L gm/dL (13.5-17.5) HEMATOCRIT 37.6 L % (41.0-53.0) MEAN CELL VOLUME 85 fL (80-100) MEAN CORPUSCULAR HGB 29 pg (26-34) MEAN CORPUSCULAR HGB CONC 34 g/dL (31-37) RED CELL DISTRIBUTION WIDTH 12.4 % (11.6-14.8) PLATELET COUNT 454 H K/uL (150-400) NEUTROPHIL % 85.7 H % (50-75) LYMPH % 10.1 L % (25-40) MONO % 1.8 L % (3-14) EOSINOPHIL % 2.2 % (0-4) BASOPHIL % 0.2 % (0-2) . Note - Tests: (us soft tissue IMPRESSION: 1. There is a persistent 6.4 x 2.2 cm hypoechoic area in the subcutaneous tissues consistent with phlegmon or abscess. 2. Findings discussed with Nithya Santillan, PAC. Electronically Final signed by:John Wilder MD 12/12/2016 8:28:09 PM). PROGRESS AND PROCEDURES Incision & Drainage of Abscess: Time: 1905. Time-out completed immediately before the procedure. The abscess is located (left thigh). The risks of the procedure, benefits and alternatives were explained. Consent was obtained. Anesthesia provided using 1% lidocaine with epi. Ultrasound utilized to confirm presence and determine location of abscess. The abscess was incised with a #11 surgical blade. No pus drained. A dressing was applied. ( incision made to the hub of the scalp blade, and only sanguinous fluid.). Course of Care: Patient in the emergency Department with worsening of his previous abscesses, has been managed outpatient with Bactrim and Keflex, and has no fever or tachycardia, murmur abscess has been worsening. No lymphangitic streaking, or lymphadenopathy. Attempted incision and drainage, however unable to get to the depth of the abscess, despite probing and attempts. Discussed case with Dr. Umanzor, and will see patient here. Discussed with DR. Hope, who will consult to manage pain, as pt on methadone. Pt with difficult iv access, able to get cbc, and start vancomycin. 12/12/2016 22:27 BP: 106/63. HR: 61. RR: 15. O2 saturation: 96%. Temp: 98.6 F. Costa-Rahman pain scale: 4/10. 12/12/2016 21:52 BP: 99/53. HR: 69. RR: 16. O2 saturation: 99%. Temp: 98.6 F. Pain level now: 7/10. Patient is stable. Symptoms better. Patient/family counseled. Disposition: Admitted. CLINICAL IMPRESSION Left Thigh Abscess with cellulitis. (Electronically signed by Moon Santillan P.A.-C 12/12/2016 22:39)
--- NOTE | 2016-12-12 22:53 | ED DISCHARGE INSTRUCTIONS ---
Patient: AMBAR BELLO General Instructions [facility] VisitID: [id number] [address] [place] [address] 36y, M Registration Date/Time: 12/12/2016 Left Thigh Abscess with cellulitis. (Electronically signed by Moon Santillan P.A.-C 12/12/2016 22:39)
--- NOTE | 2016-12-12 22:53 | ED MAR SUMMARY ---
..... Medication Administration Record [facility] [address] [place] [address] Patient: AMBAR BELLO Visit ID: [id number] 36y, M Weight: 83.9 kg Height/Length: 69 in BMI: 27.3 ALLERGIES: None Given 21:35 12/12/2016 Amanda Nascimento R.N. Medication Administered: DILAUDID [IVP] (HYDROMORPHONE HCL PF), Dose: 1 mg IVP over 2 minute(s), Site: #1 left upper arm. Medication Ordered: Dilaudid IV 1 mg (HIGH ALERT MEDICATION, NOW). Start 22:07 12/12/2016 Racheal Cohen RPoly, Continued Upon Admission 22:35 12/12/2016 Loreto Hernandez RPoly Medication Administered: VANCOMYCIN [IVPB], Dose: 2 gm IVPB over 2 hour(s), Rate: 500 mL/hr, Dispensed: 500 mL bag, Site: #1 left upper arm. Medication Ordered: Vancomycin IV 2 gm/500 mL (NOW). Given 22:07 12/12/2016 Racheal Cohen, R.N. Medication Administered: DILAUDID [IVP] (HYDROMORPHONE HCL PF), Dose: 1 mg IVP over 30 second(s), Site: #1 left upper arm. Medication Ordered: Dilaudid IV 1 mg (HIGH ALERT MEDICATION, NOW).
--- NOTE | 2016-12-12 22:53 | ED MED RECONCILIATION SUMMARY ---
Patient: AMBAR BELLO Medication Reconciliation Report [facility] VisitID: [id number] [address] [place] [address] 36y, M Registration Date/Time: 12/12/2016 Weight: 83.9 kg Height/Length: 69 in. BMI: 27.3 ALLERGIES: None The patient's Home Medications are listed below: THE FOLLOWING MEDICATIONS NEED TO BE RECONCILED: Methadone HCl Oral 85 mg , daily The source(s) of the original Home Medication information: patient The following Medications were given to the patient in the Emergency Department: Dilaudid [IVP] IVP 1 mg, administered: 12/12/2016 9:35:00 PM Vancomycin [IVPB] IVPB bolus 0, then 2 gm 500 mL/hr, administered: 12/12/2016 10:07:00 PM Dilaudid [IVP] IVP 1 mg, administered: 12/12/2016 10:07:00 PM The following Medications were prescribed to the patient: None.
--- NOTE | 2016-12-12 22:53 | ED DISCHARGE INSTRUCTIONS ---
Patient: AMBAR BELLO General Instructions [facility] VisitID: [id number] [address] [place] [address] 36y, M Registration Date/Time: 12/12/2016 Left Thigh Abscess with cellulitis. (Electronically signed by Moon Santillan P.A.-C 12/12/2016 22:39)
--- NOTE | 2016-12-12 22:53 | ED MED RECONCILIATION SUMMARY ---
Patient: AMBAR BELLO Medication Reconciliation Report [facility] VisitID: [id number] [address] [place] [address] 36y, M Registration Date/Time: 12/12/2016 Weight: 83.9 kg Height/Length: 69 in. BMI: 27.3 ALLERGIES: None The patient's Home Medications are listed below: THE FOLLOWING MEDICATIONS NEED TO BE RECONCILED: Methadone HCl Oral 85 mg , daily The source(s) of the original Home Medication information: patient The following Medications were given to the patient in the Emergency Department: Dilaudid [IVP] IVP 1 mg, administered: 12/12/2016 9:35:00 PM Vancomycin [IVPB] IVPB bolus 0, then 2 gm 500 mL/hr, administered: 12/12/2016 10:07:00 PM Dilaudid [IVP] IVP 1 mg, administered: 12/12/2016 10:07:00 PM The following Medications were prescribed to the patient: None.
--- NOTE | 2016-12-12 22:53 | ED MAR SUMMARY ---
..... Medication Administration Record [facility] [address] [place] [address] Patient: AMBAR BELLO Visit ID: [id number] 36y, M Weight: 83.9 kg Height/Length: 69 in BMI: 27.3 ALLERGIES: None Given 21:35 12/12/2016 Amanda Nascimento R.N. Medication Administered: DILAUDID [IVP] (HYDROMORPHONE HCL PF), Dose: 1 mg IVP over 2 minute(s), Site: #1 left upper arm. Medication Ordered: Dilaudid IV 1 mg (HIGH ALERT MEDICATION, NOW). Start 22:07 12/12/2016 Racheal Cohen RPoly, Continued Upon Admission 22:35 12/12/2016 Loreto Hernandez RPoly Medication Administered: VANCOMYCIN [IVPB], Dose: 2 gm IVPB over 2 hour(s), Rate: 500 mL/hr, Dispensed: 500 mL bag, Site: #1 left upper arm. Medication Ordered: Vancomycin IV 2 gm/500 mL (NOW). Given 22:07 12/12/2016 Racheal Cohen, R.N. Medication Administered: DILAUDID [IVP] (HYDROMORPHONE HCL PF), Dose: 1 mg IVP over 30 second(s), Site: #1 left upper arm. Medication Ordered: Dilaudid IV 1 mg (HIGH ALERT MEDICATION, NOW).
[2016-12-12 22:55] VITALS: BP 112/52
[2016-12-13] VITALS (9 sets, daily range): BP systolic 94–109; BP diastolic 52–69
--- NOTE | 2016-12-13 07:01 | HISTORY AND PHYSICAL ---
ADMITTED: 12/12/2016 CHIEF COMPLAINT: 1. Left thigh pain HISTORY OF PRESENT ILLNESS: History is that 5 days ago, he began having swelling and pain in the left side, about 3 to 3-1/2 days week ago he came here and got an antibiotic prescription for Bactrim and Keflex. He stated with the antibiotics he thinks the swelling may have gone down but the pain went up and he has had some low-grade fevers and came back to the emergency department. Attempt to drain abscess of the left thigh was performed here in the emergency department by our physician training and development assistant but was unsuccessful and the patient is being admitted for incision and drainage procedure of left thigh and IV antibiotic treatment. MEDICAL/SURGICAL HISTORY: The past history is positive in that he has had a history of drug usage and is currently on methadone 85 mg a day. He denies any recent self injection procedures. He does have a history of prior abscess in his left arm. He denies any other serious medical illness and specifically denied AIDS, cancer, tumor, tuberculosis, diabetes, hepatitis or other serious medical condition and says he has no problems with his heart, lung, kidney, stomach, or liver. MEDICATIONS: 1. ALLERGIES: 1. HE HAS NO KNOWN ALLERGIES: SOCIAL HISTORY: He is a smoker and was encouraged to stop smoking. FAMILY HISTORY: Negative for any familial illness, bleeding problems or anesthesia. REVIEW OF SYSTEMS: Negative for loss of consciousness, seizure, problems with vision, balance or hearing. He has not had any cough or congestion, shortness of breath, or chest pain and has had some mild fever and maybe some chills and sweats. He also has had some nausea or just kind of a queasy stomach but said he has not had any vomiting and has not had any diarrhea. No blood in his stools, any dysuria or hematuria, no other musculoskeletal complaints. PHYSICAL EXAMINATION: HEENT: Shows head to be normocephalic, atraumatic. Eyes are clear. His hearing is grossly normal. He has no drainage from the ear canals. Face is symmetrical. He has no jugular venous distention. CHEST: Symmetrical. HEART: Regular rate and rhythm without murmur. LUNGS: Clear to auscultation. ABDOMEN: Soft and flat. EXTREMITIES: The patient does have prominence over the anterolateral aspect of the proximal thigh near the left groin crease. There is a small incision about 1.5 cm maybe as long as 2 cm in length anterolaterally and just a tiny amount of bloody drainage is present there. It was covered with a small Band-Aid. There is some mild warmth and some moderate erythema associated and he is quite tender in the area. I do not feel any fluctuance. It is rather firm. More distally, he has no pedal edema. He has active dorsiflexion and plantarflexion of the toes and has light touch sensation present throughout and 2+ dorsal pedal pulse. IMPRESSION: 1. Abscess left thigh PLAN: The plan will be for admission, IV antibiotic administration and incision and drainage procedure tomorrow as possible.
--- NOTE | 2016-12-13 08:12 | Progress Note ---
Subjective General VSS Tmax 98.8 WBC 17.9 Gram stain - Plan for I/D of thigh abscess today. Probably at noon. Picc line inserted this am.
--- NOTE | 2016-12-13 08:12 | Progress Note ---
Subjective General VSS Tmax 98.8 WBC 17.9 Gram stain - Plan for I/D of thigh abscess today. Probably at noon. Picc line inserted this am.
--- NOTE | 2016-12-13 08:34 | DIAGNOSTIC IMAGING REPORT ---
PROCEDURE: XR CHEST 1 VIEW INDICATION: PIC placement. TECHNIQUE: Portable AP view (0810 hours). COMPARISON: None. FINDINGS: Right PIC line has been placed which ends in the lower superior vena cava (satisfactory position). There is minor linear scarring at the right lung base. Lungs are otherwise clear. Heart and mediastinum are normal. Thorax is normal. IMPRESSION: 1. Placement of right PIC line in satisfactory position (lower superior vena cava). 2. Otherwise negative chest. 3. Findings called to the floor (J, RT).
--- NOTE | 2016-12-13 12:51 | Postoperative Progress Note ---
Postop Progress Note Preoperate Diagnosis: Abscess left thigh Postoperative Diagnosis: Same Surgeon: Rory Umanzor MD Anesthesia: General ETT Findings: Abscess left thigh Procedure: I/D left thigh Complications? No Condition: Good EBL: 2cc Drain(s): Iodoform gauze Blood Administered: 0 Specimen(s) removed? Yes (C/S left thigh) Specimen removed/disposition: C/S left thigh Grafts or Implants? No . (See nursing notes for details of grafts/implants)
--- NOTE | 2016-12-13 13:34 | OPERATIVE REPORT ---
DATE OF SURGERY: 12/13/2016 SURGEON: ELAYNE RAHMAN MD PREOPERATIVE DIAGNOSIS: 1. Left thigh abscess POSTOPERATIVE DIAGNOSIS: 1. Left thigh abscess. PROCEDURE PERFORMED: 1. The procedure proposed was an incision and drainage of the left thigh abscess and operation performed was an incision and drainage of the left thigh abscess FINDINGS: Left thigh abscess. ESTIMATED BLOOD LOSS: Only about 2 mL COMPLICATIONS: None. PATHOLOGY SPECIMEN: Culture taken from the abscess cavity. DESCRIPTION OF PROCEDURE: The patient was taken to the operating room, was given general anesthetic. Sterile prepping and draping of the anterolateral aspect of the proximal left thigh and then just was gently probed with a clamp. We were able to enter the abscess cavity without difficulty and express a large quantity of pus and then irrigated it out with sterile saline, packed it with 1 inch wide iodoform gauze and then covered with 4 x 4 inch gauze and ABD sponge. This was taped securely in place. He was awakened and taken to the recovery room in stable condition.
--- NOTE | 2016-12-13 17:28 | Progress Note ---
Subjective General Note Date: December 13, 2016 Admission Date: December 12, 2016 Hospital Day: 2 PCP: None Status: Inpatient, ACU Advanced Directive: FULL CODE Room: 305 Admission History: The patient is a 36-year-old white male with a significant past medical history of illicit drug use-heroin/IVDA, opiate dependence who presented to [facility] emergency department on the day of admission secondary to left thigh pain. [facility] ER evaluation was consistent with left thigh abscess. Secondary to the above the patient was admitted by Arun Umanzor M.D. for further evaluation and treatment. For other history present illness, past medical history, family history, social history, review of systems, and admission physical examination please see the patient's history and physical examination and ER visit note in the patient's medical record. Medications and Allergies Medications Current Medications Sig/Ashwin Start time Last Medication Dose Route Stop Time Status Admin Clarify Med Order See Dose 1330 12/14 1330 AC Insts (1) IV 12/14 1430 Methadone HCl 80 MG QHS 12/13 2100 AC PO Methadone HCl 5 MG QHS 12/13 2100 AC PO Vancomycin HCl/ 200 ML Q12HR 12/13 2100 CAN Dextrose IV Ferrous Sulfate 325 MG BIDWC 12/13 1800 AC PO Hydromorphone HCl 1 MG Q1H PRN 12/13 1330 AC IV Hydromorphone HCl 2 MG Q1H PRN 12/13 1330 AC IV Acetaminophen 650 MG Q4H PRN 12/13 1300 AC PO Docusate Sodium 100 MG BID PRN 12/13 1300 AC PO Hydromorphone HCl See Dose Q1H PRN 12/13 1300 CAN Insts (2) IV Lactated Ringer's 1,000 ML ASDIRECTED 12/13 1300 AC IV Ondansetron HCl 4 MG Q4H PRN 12/13 1300 AC IV Oxycodone/ See Dose Q4H PRN 12/13 1300 AC Acetaminophen Insts (3) PO Enoxaparin Sodium 40 MG DAILY 12/13 0900 AC 12/13 SC 0904 Vancomycin HCl/ 1,000 MG DAILY 12/13 0900 CAN Dextrose IV Vancomycin HCl/ 200 ML Q8HR 12/13 0900 AC 12/13 Dextrose IV 1440 Vancomycin HCl See Dose .DOSING PER PHARMACY 12/13 0815 AC Insts (4) IV Famotidine 20 MG Q12HR 12/12 2311 AC 12/13 PO 1440 Naloxone HCl 0.4 MG PRN PRN 12/12 221 AC IV Zolpidem Tartrate 5 MG QHS PRN 12/12 221 AC PO Dose Instructions: (1)Clarify Med Order: VANCOMYCIN TROUGH (2)Hydromorphone HCl: 1 - 2 MG (3)Oxycodone/Acetaminophen: 1-2 TABLETS (4)Vancomycin HCl: VANCOMYCIN DOSING PER PHARMACY Allergies Coded Allergies: NKA (12/12/16) Reconcile Medications Scheduled Medications Cephalexin (Keflex) 750 MG CAP 500 MG PO TID (Reported) Methadone HCl (Methadone HCl 10 MG) 10 MG TAB 75 MG PO DAILY (Reported) Sulfamethoxazole-Trimethoprim (Bactrim DS (double strength)) 1 TAB TAB 1 TAB PO BID (Reported) Physical Exam Vital Signs / I&Os Vital Signs Date Time Temp Pulse Resp B/P Pulse O2 O2 Flow FiO2 Ox Delivery Rate 12/13 1502 58 18 94/57 100 12/13 1445 60 18 98/56 100 12/13 1430 59 18 107/63 100 12/13 1414 50 18 109/52 100 12/13 1401 97.9 55 18 106/69 100 Room Air 12/13 1345 61 10 109/61 95 12/13 1330 59 12 105/66 95 12/13 1325 97.9 60 10 111/64 96 12/13 1320 98.1 62 12 108/59 95 12/13 1315 62 14 107/62 97 12/13 1310 94 12 103/61 99 12/13 1305 63 11 116/61 98 12/13 1300 62 12 108/61 100 NC ON LMA 5.0 12/13 1255 70 10 113/67 100 NC ON LMA 8.0 12/13 1250 98.1 80 14 104/61 100 NC ON LMA 8.0 12/13 1027 98.2 62 16 95/53 98 Room Air 12/13 0634 98.4 57 18 96/55 96 Room Air 12/13 0257 98.8 58 18 102/61 98 Room Air 12/12 2303 Room Air 12/12 2255 99.7 62 18 112/52 100 Room Air I&O 12/13 0000 12/12 1600 12/12 0800 Intake Total 240 Output Total Balance 240 LAB Results Laboratory Tests 12/13 12/13 12/12 1211 0510 2014 Hematology WBC (4.5 - 11.5 K/uL) 17.9 RBC (4.50 - 5.90 M/uL) 4.41 Hgb (13.5 - 17.5 gm/dL) 12.9 Hct (41.0 - 53.0 %) 37.6 MCV (80 - 100 fL) 85 MCH (26 - 34 pg) 29 RDW (11.6 - 14.8 %) 12.4 Neut % (Auto) (50 - 75 %) 85.7 Lymph % (Auto) (25 - 40 %) 10.1 Armstrong % (Auto) (3 - 14 %) 1.8 Eos % (Auto) (0 - 4 %) 2.2 Baso % (Auto) (0 - 2 %) 0.2 Plt Count, EDTA (150 - 400 K/uL) 454 PUBS MCHC (31 - 37 g/dL) 34 Toxicology Urine Opiates Screen (NEGATIVE) POSITIVE Urine Methadone Screen (NEGATIVE) POSITIVE Ur Barbiturates Screen (NEGATIVE) NEGATIVE U Amphetamin/Meth Scrn (NEGATIVE) POSITIVE MDMA (Ecstasy) Screen (NEGATIVE) NEGATIVE U Benzodiazepines Scrn (NEGATIVE) NEGATIVE Urine Cocaine Screen (NEGATIVE) NEGATIVE U Cannabinoids Screen (NEGATIVE) NEGATIVE Urines Urine Color YELLOW Urine Appearance CLEAR Urine pH (5.0 - 8.0) 6.0 Ur Specific [place] (1.010 - 1.030) 1.025 Urine Protein (NEGATIVE) NEGATIVE Urine Ketones (NEGATIVE) NEGATIVE Urine Blood (NEGATIVE) NEGATIVE Urine Nitrite (NEGATIVE) NEGATIVE Urine Bilirubin (NEGATIVE) NEGATIVE Urine Urobilinogen (0.2 - 1.0 EU/dL) 0.2 Ur Leukocyte Esterase (NEGATIVE) NEGATIVE Urine RBC (0 - 1 rbc/hpf) 0-1 Urine WBC (0 - 1 wbc/hpf) 0-1 Ur Epithelial Cells (0 - 5 EPI/hpf) 0-1 Urine Bacteria (NONE SEEN) NONE SEEN Urine Glucose (NEGATIVE) NEGATIVE Urine Comment CULT NOT INDICATED 12/12 1922 Chemistry Plasma Sodium Cancelled Plasma Potassium Cancelled Plasma Chloride Cancelled CO2 (Enzymatic) Cancelled BUN Cancelled Creatinine Cancelled Est GFR ( Amer) Cancelled Est GFR (Non-Af Amer) Cancelled Glucose Cancelled Plasma Calcium Cancelled Microbiology Date/Time Procedure - Status Source Growth 12/13 1236 Deep Wound Culture - RES LEG 12/13 1236 Deep Wound Culture - RES LEG 12/13 1236 Gram Stain - RES LEG 12/13 0001 MRSA Screen - RECD NASAL 12/127 Superficial Wound Culture - RES DRAINAGE 12/12 2346 Gram Stain - RES DRAINAGE Assessment and Plan Problem List 1. Abscess of left thigh Plan -Patient with abscess left thigh -Status post I&D per Dr. Umanzor -Cultures obtained on results pending -Vancomycin per pharmacy protocol -Follow per orthopedics 2. Opiate dependence Status Chronic Onset Date Unknown Plan -Patient with long-standing history of opiate dependence -Methadone 85 mg by mouth daily -Continue present medical regimen -Monitor for opiate withdrawal symptoms -Continue outpatient follow-up per treatment program/PCP Current status: Fair, improved Anticipated discharge date: Anticipated discharge 1-2 days per orthopedics Anticipated discharge placement: Home Patient care time: Time in chart review, patient interview, physical exam, CPOE, and care documentation: 25 mins Complexity of care: Moderate DVT prophylaxis: Lovenox E&M Codes Inpatient Consult: [id number]
[2016-12-14] VITALS (7 sets, daily range): BP systolic 98–129; BP diastolic 52–61
--- NOTE | 2016-12-14 06:42 | Progress Note ---
Subjective General Note Date: December 14, 2016 Admission Date: December 12, 2016 Hospital Day: 3 PCP: None Status: Inpatient, ACU Advanced Directive: FULL CODE Room: 305 Admission History: The patient is a 36-year-old white male with a significant past medical history of illicit drug use-heroin/IVDA, opiate dependence who presented to [facility] emergency department on the day of admission secondary to left thigh pain. [facility] ER evaluation was consistent with left thigh abscess. Secondary to the above the patient was admitted by Arun Umanzor M.D. for further evaluation and treatment. For other history present illness, past medical history, family history, social history, review of systems, and admission physical examination please see the patient's history and physical examination and ER visit note in the patient's medical record. Subjective: The patient states she is doing well today. Pain adequately controlled. No signs of opiate withdrawal. Eating well without problems. Mild constipation Patient requests: None Medications and Allergies Medications Current Medications Sig/Ashwin Start time Last Medication Dose Route Stop Time Status Admin Clarify Med Order See Dose 1330 12/14 1330 AC Insts (1) IV 12/14 1430 Methadone HCl 80 MG QHS 12/13 2100 AC 12/13 PO 2037 Methadone HCl 5 MG QHS 12/13 2100 AC 12/13 PO 2037 Vancomycin HCl/ 200 ML Q12HR 12/13 2100 CAN Dextrose IV Ferrous Sulfate 325 MG BIDWC 12/13 1800 AC 12/13 PO 1900 Hydromorphone HCl 1 MG Q1H PRN 12/13 1330 AC IV Hydromorphone HCl 2 MG Q1H PRN 12/13 1330 AC IV Acetaminophen 650 MG Q4H PRN 12/13 1300 AC PO Docusate Sodium 100 MG BID PRN 12/13 1300 AC PO Hydromorphone HCl See Dose Q1H PRN 12/13 1300 CAN Insts (2) IV Lactated Ringer's 1,000 ML ASDIRECTED 12/13 1300 AC 12/13 IV 2032 Ondansetron HCl 4 MG Q4H PRN 12/13 1300 AC IV Oxycodone/ See Dose Q4H PRN 12/13 1300 AC Acetaminophen Insts (3) PO Enoxaparin Sodium 40 MG DAILY 12/13 0900 AC 12/13 SC 0904 Vancomycin HCl/ 1,000 MG DAILY 12/13 0900 CAN Dextrose IV Vancomycin HCl/ 200 ML Q8HR 12/13 0900 AC 12/14 Dextrose IV 0555 Vancomycin HCl See Dose .DOSING PER PHARMACY 12/13 0815 AC Insts (4) IV Famotidine 20 MG Q12HR 12/12 2311 AC 12/13 PO 1440 Naloxone HCl 0.4 MG PRN PRN 12/12 2215 AC IV Zolpidem Tartrate 5 MG QHS PRN 12/12 2215 AC PO Dose Instructions: (1)Clarify Med Order: VANCOMYCIN TROUGH (2)Hydromorphone HCl: 1 - 2 MG (3)Oxycodone/Acetaminophen: 1-2 TABLETS (4)Vancomycin HCl: VANCOMYCIN DOSING PER PHARMACY Allergies Coded Allergies: NKA (12/12/16) Reconcile Medications Scheduled Medications Cephalexin (Keflex) 750 MG CAP 500 MG PO TID (Reported) Methadone HCl (Methadone HCl 10 MG) 10 MG TAB 75 MG PO DAILY (Reported) Sulfamethoxazole-Trimethoprim (Bactrim DS (double strength)) 1 TAB TAB 1 TAB PO BID (Reported) Physical Exam Vital Signs / I&Os Vital Signs Date Time Temp Pulse Resp B/P Pulse O2 O2 Flow FiO2 Ox Delivery Rate 12/14 0449 98.2 57 14 100/60 98 Room Air 12/14 0005 98.1 60 14 98/56 98 Room Air 12/13 2353 Room Air 12/13 2006 4.0 12/13 1805 98.2 16 106/58 99 Room Air 12/13 1502 58 18 94/57 100 12/13 1445 60 18 98/56 100 12/13 1430 59 18 107/63 100 12/13 1414 50 18 109/52 100 12/13 1401 97.9 55 18 106/69 100 Room Air 12/13 1345 61 10 109/61 95 12/13 1330 59 12 105/66 95 12/13 1325 97.9 60 10 111/64 96 12/13 1320 98.1 62 12 108/59 95 12/13 1315 62 14 107/62 97 12/13 1310 94 12 103/61 99 12/13 1305 63 11 116/61 98 12/13 1300 62 12 108/61 100 NC ON LMA 5.0 12/13 1255 70 10 113/67 100 NC ON LMA 8.0 12/13 1250 98.1 80 14 104/61 100 NC ON LMA 8.0 12/13 1027 98.2 62 16 95/53 98 Room Air I&O 12/14 0000 12/13 1600 12/13 0800 Intake Total 1612 690 0 Output Total 500 3 575 Balance 1112 687 -575 General Appearance Alert, Oriented X3, Cooperative, No acute distress Lungs Clear to auscultation, Normal air movement Cardiovascular Regular rate and rhythm, Normal S1 and S2 Abdomen Soft, No tenderness Extremities No cyanosis, No clubbing, wound not examined. Neurological Cranial nerves intact, No lateralizing signs Psych/Mental Status Mental status normal, Mood normal LAB Results Laboratory Tests 12/14 12/13 0549 1211 Chemistry Plasma Sodium (136 - 145 mmol/L) 141 Plasma Potassium (3.5 - 5.1 mmol/L) 4.6 Plasma Chloride (98 - 107 mmol/L) 105 CO2 (Enzymatic) (21 - 32 mmol/L) 29 BUN (7 - 18 mg/dL) 13 Creatinine (0.6 - 1.3 mg/dL) 1.1 Est GFR ( Amer) (mL/min) >60 Est GFR (Non-Af Amer) (mL/min) >60 Glucose (70 - 110 mg/dL) 91 Plasma Calcium (8.5 - 10.1 mg/dL) 8.9 Hematology WBC (4.5 - 11.5 K/uL) 9.4 RBC (4.50 - 5.90 M/uL) 3.83 Hgb (13.5 - 17.5 gm/dL) 11.2 Hct (41.0 - 53.0 %) 33.6 MCV (80 - 100 fL) 88 MCH (26 - 34 pg) 29 RDW (11.6 - 14.8 %) 12.8 Neut % (Auto) (50 - 75 %) 58.3 Lymph % (Auto) (25 - 40 %) 25.5 Gibson % (Auto) (3 - 14 %) 9.9 Eos % (Auto) (0 - 4 %) 4.9 Baso % (Auto) (0 - 2 %) 1.4 Plt Count, EDTA (150 - 400 K/uL) 455 PUBS MCHC (31 - 37 g/dL) 33 ESR Westergren (0 - 15 mm/hr) 8 Toxicology Urine Opiates Screen (NEGATIVE) POSITIVE Urine Methadone Screen (NEGATIVE) POSITIVE Ur Barbiturates Screen (NEGATIVE) NEGATIVE U Amphetamin/Meth Scrn (NEGATIVE) POSITIVE MDMA (Ecstasy) Screen (NEGATIVE) NEGATIVE U Benzodiazepines Scrn (NEGATIVE) NEGATIVE Urine Cocaine Screen (NEGATIVE) NEGATIVE U Cannabinoids Screen (NEGATIVE) NEGATIVE Microbiology Date/Time Procedure - Status Source Growth 12/13 1236 Deep Wound Culture - RES LEG 12/13 1236 Deep Wound Culture - RES LEG 12/13 1236 Gram Stain - RES LEG Assessment and Plan Problem List 1. Abscess of left thigh Plan -Status post I&D -Follow per orthopedics -Await culture results -Continue vancomycin -WBC improved, afebrile 2. Nicotine dependence Status Chronic Onset Date Unknown Plan -Patient with history of nicotine dependence-smoking -Smoking cessation education -Encourage smoking abstinence post discharge -NicoDerm patch when necessary. Patient does not feel he needs anything at this time for nicotine withdrawal 3. Opiate dependence Status Chronic Onset Date Unknown Plan -Patient denies symptoms of opiate withdrawal -Continue methadone at current levels Current status: Fair, improved Anticipated discharge date: Anticipated discharge per orthopedics Anticipated discharge placement: Home Patient care time: Time in chart review, patient interview, physical exam, CPOE, and care documentation: 25 mins Visit to patient today: 1 Complexity of care: Moderate DVT prophylaxis: Lovenox 40 mg subcutaneous daily
--- NOTE | 2016-12-14 08:24 | Progress Note ---
Subjective General VSS afebrile WBC 9.4 C/S all - so far. No c/o, less pain Bandages are dry and clean. Continue Vancocin.
--- NOTE | 2016-12-14 08:24 | Progress Note ---
Subjective General VSS afebrile WBC 9.4 C/S all - so far. No c/o, less pain Bandages are dry and clean. Continue Vancocin.
[2016-12-15 04:33] VITALS: BP 106/58
--- NOTE | 2016-12-15 06:43 | Progress Note ---
Subjective General Note Date: December 14, 2016 Admission Date: December 12, 2016 Hospital Day: 3 PCP: None Status: Inpatient, ACU Advanced Directive: FULL CODE Room: 305 Admission History: The patient is a 36-year-old white male with a significant past medical history of illicit drug use-heroin/IVDA, opiate dependence who presented to [facility] emergency department on the day of admission secondary to left thigh pain. [facility] ER evaluation was consistent with left thigh abscess. Secondary to the above the patient was admitted by Arun Umanzor M.D. for further evaluation and treatment. For other history present illness, past medical history, family history, social history, review of systems, and admission physical examination please see the patient's history and physical examination and ER visit note in the patient's medical record. Subjective: The patient states he is doing well today. Denies symptoms of opiate withdrawal. Patient requests: None Medications and Allergies Medications Current Medications Sig/Ashwin Start time Last Medication Dose Route Stop Time Status Admin Magnesium Citrate 300 ML 1300 12/17 1300 AC PO 12/17 1500 Bisacodyl 10 MG 0900 12/17 0900 AC IN 12/17 1200 Polyethylene Glycol 17 GM 0900 12/16 0900 AC PO 12/16 1200 Magnesium Hydroxide 10 ML 0900 12/15 0900 AC PO 12/15 1200 Methadone HCl 80 MG QHS 12/13 2100 AC 12/14 PO 2136 Methadone HCl 5 MG QHS 12/13 2100 AC 12/14 PO 2137 Ferrous Sulfate 325 MG BIDWC 12/13 1800 AC 12/14 PO 1719 Hydromorphone HCl 1 MG Q1H PRN 12/13 1330 AC IV Hydromorphone HCl 2 MG Q1H PRN 12/13 1330 AC IV Acetaminophen 650 MG Q4H PRN 12/13 1300 AC PO Lactated Ringer's 1,000 ML ASDIRECTED 12/13 1300 AC 12/15 IV 0637 Ondansetron HCl 4 MG Q4H PRN 12/13 1300 AC IV Oxycodone/ See Dose Q4H PRN 12/13 1300 AC 12/14 Acetaminophen Insts (1) PO 1319 Enoxaparin Sodium 40 MG DAILY 12/13 0900 AC 12/14 SC 0852 Vancomycin HCl/ 200 ML Q8HR 12/13 0900 AC 12/15 Dextrose IV 0637 Vancomycin HCl See Dose .DOSING PER PHARMACY 12/13 0815 AC Insts (2) IV Famotidine 20 MG Q12HR 12/12 2311 AC 12/14 PO 2136 Naloxone HCl 0.4 MG PRN PRN 12/12 2215 AC IV Zolpidem Tartrate 5 MG QHS PRN 12/12 2215 AC PO Dose Instructions: (1)Oxycodone/Acetaminophen: 1-2 TABLETS (2)Vancomycin HCl: VANCOMYCIN DOSING PER PHARMACY Allergies Coded Allergies: NKA (12/12/16) Reconcile Medications Scheduled Medications Cephalexin (Keflex) 750 MG CAP 500 MG PO TID (Reported) Methadone HCl (Methadone HCl 10 MG) 10 MG TAB 75 MG PO DAILY (Reported) Sulfamethoxazole-Trimethoprim (Bactrim DS (double strength)) 1 TAB TAB 1 TAB PO BID (Reported) Physical Exam Vital Signs / I&Os Vital Signs Date Time Temp Pulse Resp B/P Pulse O2 O2 Flow FiO2 Ox Delivery Rate 12/15 0433 98.6 55 18 106/58 95 Room Air 12/14 2300 98.8 81 18 103/61 97 Room Air 12/14 2002 Room Air 12/14 1810 98.8 55 18 129/54 98 Room Air 12/14 1440 98.2 88 18 112/59 98 Room Air 12/14 1152 98.2 51 18 102/58 95 12/14 0845 Room Air 12/14 0737 98.2 57 18 106/52 93 I&O 12/15 0000 12/14 1600 12/14 0800 Intake Total 1128 115 0918 Output Total 1600 1300 1175 Balance 385 -580 232 General Appearance Alert, Oriented X3, Cooperative, No acute distress Lungs Clear to auscultation, Normal air movement Cardiovascular Regular rate and rhythm, Normal S1 and S2 Abdomen Normal bowel sounds, Soft, No tenderness Extremities No cyanosis, No clubbing, No edema, wound not examined. Neurological Cranial nerves intact, No lateralizing signs Psych/Mental Status Mental status normal, Mood normal LAB Results Laboratory Tests 12/14 1330 Toxicology Vancomycin Trough (10.0 - 20.0 ug/mL) 15.2 Assessment and Plan Problem List 1. Abscess of left thigh Plan -Doing well. Pain well-controlled -Patient states orthopedics plans discharge in a.m. -Wound cultures unremarkable-normal skin jaclyn -Switch to Bactrim DS 1 by mouth twice a day -Plan discharge in a.m. per orthopedics 2. Opiate dependence Status Chronic Onset Date Unknown Plan -stable -No evidence of opiate withdrawal -Continue present methadone dosage post discharge 3. Nicotine dependence Status Chronic Onset Date Unknown Plan -Patient with history of nicotine dependence-smoking -Smoking cessation education -Encourage smoking abstinence post discharge Current status: Fair, improved Anticipated discharge date: Per orthopedics Anticipated discharge placement: Home Patient care time: Time in chart review, patient interview, physical exam, CPOE, and care documentation: 25 mins Visit to patient today: 1 Complexity of care: Moderate DVT prophylaxis: Lovenox 40 mg subcutaneous daily E&M Codes Rounding: Inpt-Moderate/53711
--- NOTE | 2016-12-15 06:43 | Progress Note ---
Subjective General Note Date: December 14, 2016 Admission Date: December 12, 2016 Hospital Day: 3 PCP: None Status: Inpatient, ACU Advanced Directive: FULL CODE Room: 305 Admission History: The patient is a 36-year-old white male with a significant past medical history of illicit drug use-heroin/IVDA, opiate dependence who presented to [facility] emergency department on the day of admission secondary to left thigh pain. [facility] ER evaluation was consistent with left thigh abscess. Secondary to the above the patient was admitted by Arun Umanzor M.D. for further evaluation and treatment. For other history present illness, past medical history, family history, social history, review of systems, and admission physical examination please see the patient's history and physical examination and ER visit note in the patient's medical record. Subjective: The patient states he is doing well today. Denies symptoms of opiate withdrawal. Patient requests: None Medications and Allergies Medications Current Medications Sig/Ashwin Start time Last Medication Dose Route Stop Time Status Admin Magnesium Citrate 300 ML 1300 12/17 1300 AC PO 12/17 1500 Bisacodyl 10 MG 0900 12/17 0900 AC AL 12/17 1200 Polyethylene Glycol 17 GM 0900 12/16 0900 AC PO 12/16 1200 Magnesium Hydroxide 10 ML 0900 12/15 0900 AC PO 12/15 1200 Methadone HCl 80 MG QHS 12/13 2100 AC 12/14 PO 2136 Methadone HCl 5 MG QHS 12/13 2100 AC 12/14 PO 2137 Ferrous Sulfate 325 MG BIDWC 12/13 1800 AC 12/14 PO 1719 Hydromorphone HCl 1 MG Q1H PRN 12/13 1330 AC IV Hydromorphone HCl 2 MG Q1H PRN 12/13 1330 AC IV Acetaminophen 650 MG Q4H PRN 12/13 1300 AC PO Lactated Ringer's 1,000 ML ASDIRECTED 12/13 1300 AC 12/15 IV 0637 Ondansetron HCl 4 MG Q4H PRN 12/13 1300 AC IV Oxycodone/ See Dose Q4H PRN 12/13 1300 AC 12/14 Acetaminophen Insts (1) PO 1319 Enoxaparin Sodium 40 MG DAILY 12/13 0900 AC 12/14 SC 0852 Vancomycin HCl/ 200 ML Q8HR 12/13 0900 AC 12/15 Dextrose IV 0637 Vancomycin HCl See Dose .DOSING PER PHARMACY 12/13 0815 AC Insts (2) IV Famotidine 20 MG Q12HR 12/12 2311 AC 12/14 PO 2136 Naloxone HCl 0.4 MG PRN PRN 12/12 2215 AC IV Zolpidem Tartrate 5 MG QHS PRN 12/12 2215 AC PO Dose Instructions: (1)Oxycodone/Acetaminophen: 1-2 TABLETS (2)Vancomycin HCl: VANCOMYCIN DOSING PER PHARMACY Allergies Coded Allergies: NKA (12/12/16) Reconcile Medications Scheduled Medications Cephalexin (Keflex) 750 MG CAP 500 MG PO TID (Reported) Methadone HCl (Methadone HCl 10 MG) 10 MG TAB 75 MG PO DAILY (Reported) Sulfamethoxazole-Trimethoprim (Bactrim DS (double strength)) 1 TAB TAB 1 TAB PO BID (Reported) Physical Exam Vital Signs / I&Os Vital Signs Date Time Temp Pulse Resp B/P Pulse O2 O2 Flow FiO2 Ox Delivery Rate 12/15 0433 98.6 55 18 106/58 95 Room Air 12/14 2300 98.8 81 18 103/61 97 Room Air 12/14 2002 Room Air 12/14 1810 98.8 55 18 129/54 98 Room Air 12/14 1440 98.2 88 18 112/59 98 Room Air 12/14 1152 98.2 51 18 102/58 95 12/14 0845 Room Air 12/14 0737 98.2 57 18 106/52 93 I&O 12/15 0000 12/14 1600 12/14 0800 Intake Total 6603 594 0390 Output Total 1600 1300 1175 Balance 385 -580 232 General Appearance Alert, Oriented X3, Cooperative, No acute distress Lungs Clear to auscultation, Normal air movement Cardiovascular Regular rate and rhythm, Normal S1 and S2 Abdomen Normal bowel sounds, Soft, No tenderness Extremities No cyanosis, No clubbing, No edema, wound not examined. Neurological Cranial nerves intact, No lateralizing signs Psych/Mental Status Mental status normal, Mood normal LAB Results Laboratory Tests 12/14 1330 Toxicology Vancomycin Trough (10.0 - 20.0 ug/mL) 15.2 Assessment and Plan Problem List 1. Abscess of left thigh Plan -Doing well. Pain well-controlled -Patient states orthopedics plans discharge in a.m. -Wound cultures unremarkable-normal skin jaclyn -Switch to Bactrim DS 1 by mouth twice a day -Plan discharge in a.m. per orthopedics 2. Opiate dependence Status Chronic Onset Date Unknown Plan -stable -No evidence of opiate withdrawal -Continue present methadone dosage post discharge 3. Nicotine dependence Status Chronic Onset Date Unknown Plan -Patient with history of nicotine dependence-smoking -Smoking cessation education -Encourage smoking abstinence post discharge Current status: Fair, improved Anticipated discharge date: Per orthopedics Anticipated discharge placement: Home Patient care time: Time in chart review, patient interview, physical exam, CPOE, and care documentation: 25 mins Visit to patient today: 1 Complexity of care: Moderate DVT prophylaxis: Lovenox 40 mg subcutaneous daily E&M Codes Rounding: Inpt-Moderate/42693
[2016-12-15 06:46] VITALS: BP 98/51
--- NOTE | 2016-12-15 09:38 | Progress Note ---
Subjective General VSS Afebrile Better today, less pain. Edema and erythema are decreased. Still with moderate bloody drainage. Nothing on C/S yet Continue IV Vancocin.
--- NOTE | 2016-12-15 09:38 | Progress Note ---
Subjective General VSS Afebrile Better today, less pain. Edema and erythema are decreased. Still with moderate bloody drainage. Nothing on C/S yet Continue IV Vancocin.
[2016-12-15 11:06] VITALS: BP 98/51
[2016-12-15 14:41] VITALS: BP 97/53
[2016-12-15 18:25] VITALS: BP 107/64
[2016-12-15 22:53] VITALS: BP 108/68
[2016-12-16 02:37] VITALS: BP 109/64
--- NOTE | 2016-12-16 06:46 | Progress Note ---
Subjective General Note Date: December 16, 2016 Admission Date: December 12, 2016 Hospital Day: 5 PCP: None Status: Inpatient, ACU Advanced Directive: FULL CODE Room: 305 Admission History: The patient is a 36-year-old white male with a significant past medical history of illicit drug use-heroin/IVDA, opiate dependence who presented to [facility] emergency department on the day of admission secondary to left thigh pain. [facility] ER evaluation was consistent with left thigh abscess. Secondary to the above the patient was admitted by Arun Umanzor M.D. for further evaluation and treatment. For other history present illness, past medical history, family history, social history, review of systems, and admission physical examination please see the patient's history and physical examination and ER visit note in the patient's medical record. Subjective: Doing well. No complaints. Ready for discharge Patient requests: None Medications and Allergies Medications Current Medications Sig/Ashwin Start time Last Medication Dose Route Stop Time Status Admin Magnesium Citrate 300 ML 1300 12/17 1300 AC PO 12/17 1500 Bisacodyl 10 MG 0900 12/17 0900 AC IN 12/17 1200 Polyethylene Glycol 17 GM 0900 12/16 0900 AC PO 12/16 1200 Trimethoprim/ 1 TAB BID 12/15 1350 AC 12/15 Sulfamethoxazole PO 2052 Methadone HCl 80 MG QHS 12/13 2100 AC 12/15 PO 2052 Methadone HCl 5 MG QHS 12/13 2100 AC 12/15 PO 2052 Ferrous Sulfate 325 MG BIDWC 12/13 1800 AC 12/15 PO 1757 Hydromorphone HCl 1 MG Q1H PRN 12/13 1330 AC IV Hydromorphone HCl 2 MG Q1H PRN 12/13 1330 AC IV Acetaminophen 650 MG Q4H PRN 12/13 1300 AC PO Lactated Ringer's 1,000 ML ASDIRECTED 12/13 1300 AC 12/16 IV 0406 Ondansetron HCl 4 MG Q4H PRN 12/13 1300 AC IV Oxycodone/ See Dose Q4H PRN 12/13 1300 AC 12/14 Acetaminophen Insts (1) PO 1319 Enoxaparin Sodium 40 MG DAILY 12/13 0900 AC 12/15 SC 0823 Famotidine 20 MG Q12HR 12/12 2311 AC 12/15 PO 2052 Naloxone HCl 0.4 MG PRN PRN 12/12 2215 AC IV Zolpidem Tartrate 5 MG QHS PRN 12/12 2214 AC PO Dose Instructions: (1)Oxycodone/Acetaminophen: 1-2 TABLETS Allergies Coded Allergies: NKA (12/12/16) Reconcile Medications Scheduled Medications Cephalexin (Keflex) 750 MG CAP 500 MG PO TID (Reported) Methadone HCl (Methadone HCl 10 MG) 10 MG TAB 75 MG PO DAILY (Reported) Sulfamethoxazole-Trimethoprim (Bactrim DS (double strength)) 1 TAB TAB 1 TAB PO BID (Reported) Physical Exam Vital Signs / I&Os Vital Signs Date Time Temp Pulse Resp B/P Pulse O2 O2 Flow FiO2 Ox Delivery Rate 12/16 0237 98.4 48 16 109/64 99 Room Air 12/16 0203 Room Air 12/15 2253 98.4 54 16 108/68 97 Room Air 12/15 1825 98.4 49 16 107/64 98 Room Air 12/15 1700 Room Air 12/15 1441 98.1 52 18 97/53 97 Room Air 0.0 12/15 1112 52 12/15 1106 98.1 42 17 98/51 96 Room Air 12/15 1021 95 I&O 12/16 0000 12/15 1600 12/15 0800 Intake Total 486 1616 1409 Output Total 775 1425 700 Balance -289 191 709 General Appearance Alert, Oriented X3, Cooperative, No acute distress Lungs Clear to auscultation, Normal air movement Cardiovascular Regular rate and rhythm, Normal S1 and S2 Abdomen Normal bowel sounds, Soft Extremities No cyanosis, No clubbing, Wound not examined Neurological Cranial nerves intact, Strength 5/5 x4 ext's, No lateralizing signs Psych/Mental Status Mental status normal, Mood normal LAB Results Laboratory Tests 12/15 1330 Toxicology Vancomycin Trough (10.0 - 20.0 ug/mL) 18.7 Assessment and Plan Problem List 1. Abscess of left thigh Plan -Improved -Possible discharge today -Bactrim DS one by mouth twice a day 2. Opiate dependence Status Chronic Onset Date Unknown Plan -Stable -Continue present methadone dosage regimen -Outpatient follow-up with [facility] methadone treatment program 3. Nicotine dependence Status Chronic Onset Date Unknown Plan -Encourage smoking cessation post discharge today -Patient aware of health risks associated with smoking. Current status: Good, improved Anticipated discharge date: Today Anticipated discharge placement: Home Patient care time: Time in chart review, patient interview, physical exam, CPOE, and care documentation: 25 mins Visit to patient today: 1 Complexity of care: Low DVT prophylaxis: Lovenox Signed off at this time. Probable discharge stay. Continue present antimicrobial therapy and replacement therapy E&M Codes Rounding: Inpt-Moderate/14510
--- NOTE | 2016-12-16 06:46 | Progress Note ---
Subjective General Note Date: December 16, 2016 Admission Date: December 12, 2016 Hospital Day: 5 PCP: None Status: Inpatient, ACU Advanced Directive: FULL CODE Room: 305 Admission History: The patient is a 36-year-old white male with a significant past medical history of illicit drug use-heroin/IVDA, opiate dependence who presented to [facility] emergency department on the day of admission secondary to left thigh pain. [facility] ER evaluation was consistent with left thigh abscess. Secondary to the above the patient was admitted by Arun Umanzor M.D. for further evaluation and treatment. For other history present illness, past medical history, family history, social history, review of systems, and admission physical examination please see the patient's history and physical examination and ER visit note in the patient's medical record. Subjective: Doing well. No complaints. Ready for discharge Patient requests: None Medications and Allergies Medications Current Medications Sig/Ashwin Start time Last Medication Dose Route Stop Time Status Admin Magnesium Citrate 300 ML 1300 12/17 1300 AC PO 12/17 1500 Bisacodyl 10 MG 0900 12/17 0900 AC W[place] 12/17 1200 Polyethylene Glycol 17 GM 0900 12/16 0900 AC PO 12/16 1200 Trimethoprim/ 1 TAB BID 12/15 1350 AC 12/15 Sulfamethoxazole PO 2052 Methadone HCl 80 MG QHS 12/13 2100 AC 12/15 PO 2052 Methadone HCl 5 MG QHS 12/13 2100 AC 12/15 PO 2052 Ferrous Sulfate 325 MG BIDWC 12/13 1800 AC 12/15 PO 1757 Hydromorphone HCl 1 MG Q1H PRN 12/13 1330 AC IV Hydromorphone HCl 2 MG Q1H PRN 12/13 1330 AC IV Acetaminophen 650 MG Q4H PRN 12/13 1300 AC PO Lactated Ringer's 1,000 ML ASDIRECTED 12/13 1300 AC 12/16 IV 0406 Ondansetron HCl 4 MG Q4H PRN 12/13 1300 AC IV Oxycodone/ See Dose Q4H PRN 12/13 1300 AC 12/14 Acetaminophen Insts (1) PO 1319 Enoxaparin Sodium 40 MG DAILY 12/13 0900 AC 12/15 SC 0823 Famotidine 20 MG Q12HR 12/12 2311 AC 12/15 PO 2052 Naloxone HCl 0.4 MG PRN PRN 12/12 2215 AC IV Zolpidem Tartrate 5 MG QHS PRN 12/12 2214 AC PO Dose Instructions: (1)Oxycodone/Acetaminophen: 1-2 TABLETS Allergies Coded Allergies: NKA (12/12/16) Reconcile Medications Scheduled Medications Cephalexin (Keflex) 750 MG CAP 500 MG PO TID (Reported) Methadone HCl (Methadone HCl 10 MG) 10 MG TAB 75 MG PO DAILY (Reported) Sulfamethoxazole-Trimethoprim (Bactrim DS (double strength)) 1 TAB TAB 1 TAB PO BID (Reported) Physical Exam Vital Signs / I&Os Vital Signs Date Time Temp Pulse Resp B/P Pulse O2 O2 Flow FiO2 Ox Delivery Rate 12/16 0237 98.4 48 16 109/64 99 Room Air 12/16 0203 Room Air 12/15 2253 98.4 54 16 108/68 97 Room Air 12/15 1825 98.4 49 16 107/64 98 Room Air 12/15 1700 Room Air 12/15 1441 98.1 52 18 97/53 97 Room Air 0.0 12/15 1112 52 12/15 1106 98.1 42 17 98/51 96 Room Air 12/15 1021 95 I&O 12/16 0000 12/15 1600 12/15 0800 Intake Total 486 1616 1409 Output Total 775 1425 700 Balance -289 191 709 General Appearance Alert, Oriented X3, Cooperative, No acute distress Lungs Clear to auscultation, Normal air movement Cardiovascular Regular rate and rhythm, Normal S1 and S2 Abdomen Normal bowel sounds, Soft Extremities No cyanosis, No clubbing, Wound not examined Neurological Cranial nerves intact, Strength 5/5 x4 ext's, No lateralizing signs Psych/Mental Status Mental status normal, Mood normal LAB Results Laboratory Tests 12/15 1330 Toxicology Vancomycin Trough (10.0 - 20.0 ug/mL) 18.7 Assessment and Plan Problem List 1. Abscess of left thigh Plan -Improved -Possible discharge today -Bactrim DS one by mouth twice a day 2. Opiate dependence Status Chronic Onset Date Unknown Plan -Stable -Continue present methadone dosage regimen -Outpatient follow-up with [facility] methadone treatment program 3. Nicotine dependence Status Chronic Onset Date Unknown Plan -Encourage smoking cessation post discharge today -Patient aware of health risks associated with smoking. Current status: Good, improved Anticipated discharge date: Today Anticipated discharge placement: Home Patient care time: Time in chart review, patient interview, physical exam, CPOE, and care documentation: 25 mins Visit to patient today: 1 Complexity of care: Low DVT prophylaxis: Lovenox Signed off at this time. Probable discharge stay. Continue present antimicrobial therapy and replacement therapy E&M Codes Rounding: Inpt-Moderate/[id number]
[2016-12-16 07:31] VITALS: BP 102/53
[2016-12-16 10:57] VITALS: BP 96/47
--- NOTE | 2016-12-16 13:25 | Progress Note ---
Subjective General VSS Afebrile Much better. Still some moderate bloody drainage, less today. The edema and erythema have almost completely resolved. C/S with skin jaclyn only. DC home. Continue Bactrim and Keflex. RTC 4-5 days.
--- NOTE | 2016-12-16 13:28 | Provider's Discharge Care Plan ---
Problem, Goal, Plan Problem List 1. Abscess of left thigh 2. Opiate dependence 3. Nicotine dependence
--- NOTE | 2016-12-16 13:28 | Provider's Discharge Care Plan ---
Problem, Goal, Plan Problem List 1. Abscess of left thigh 2. Opiate dependence 3. Nicotine dependence
--- NOTE | 2016-12-16 14:13 | DISCHARGE SUMMARY ---
ADMIT DATE: 12/12/2016 DISCHARGE DATE: 12/16/2016 DISCHARGE DIAGNOSES: 1. Abscess, left thigh 2. Probably narcotic dependence 3. Nicotine dependence BRIEF HISTORY: The patient, about 5 days prior to his admission here, developed swelling and pain in his thigh. He has a history of narcotic addiction and has been on methadone treatment program. He denied any self injection procedures and just developed spontaneous abscess in his thigh. He had an attempted drainage in the emergency room, which unfortunately was unsuccessful. He been on antibiotics for several days prior to his coming to the emergency room and unfortunately had not resolved his problem, so he was admitted to the hospital for IV antibiotic therapy and drainage of the abscess. HOSPITAL COURSE: The patient was admitted to the hospital. He underwent surgery on the day following his admission. A large quantity of pus was expressed, and the wound was irrigated out thoroughly. He was on IV vancomycin, and he did very well postoperatively. His white count came back to normal on the next day after his surgery, and by the erythema and edema had almost completely resolved. He had still some drainage in his bandage that had been placed the day before, but it was markedly decreased from what it had been. He was feeling well. His vital signs were stable. He was afebrile. He wanted to be discharged home. DISCHARGE INSTRUCTIONS/MEDICATIONS: He was discharged to home in stable condition on 12/16/2016. He has Bactrim, which he has been taking twice daily, and Keflex 4 times a day at home. He will continue with those medications. He will continue with his methadone per the methadone clinic, and he will come back for a followup in our orthopedic clinic here in 3-5 days. He will change the bandages as necessary, and I put a new, clean, dry bandage on him when he left the hospital here today. Removed the PICC line, and the patient at discharge is stable. The prognosis is good. The discharge status is home.
== END 2016-12-16 14:10 | disposition home or self-care (01) | DRG 364 ==
LOC: ED SRH 17:57 → TRANS SRH 21:15 → CC SRH 22:44 → ACUTE2 SRH 12-13 18:11
PROVIDERS: ADMIT Orthopaedic Surgery
PROC: 0HJPXZZ Inspection of Skin, External Approach (ICD-10-PCS; 2016-12-12)
PROC: 02HV33Z Insertion of Infusion Device into Superior Vena Cava, Percutaneous Approach (ICD-10-PCS; 2016-12-13)
PROC: 0J9M0ZZ Drainage of Left Upper Leg Subcutaneous Tissue and Fascia, Open Approach (ICD-10-PCS; principal; 2016-12-13 12:00)
DX: L02.416 Cutaneous abscess of left lower limb (principal); L03.116 Cellulitis of left lower limb; F11.20 Opioid dependence, uncomplicated; F17.210 Nicotine dependence, cigarettes, uncomplicated
CPT/HCPCS: 50002; 60001; 70002; 80575; 83751; 83774; 90004; 90047; 90074; 90100; 90131; 90309; 90470; 91583; 92132; 92760; 92761; 92762; 92763; 92764; 92765; 92766; 92767; 93004; 95059; 95150; 98480